=== PATIENT | female | born 1950 | race Caucasian/White ===

== ENCOUNTER 2019-03-09 12:28 | Day surgery (SDC) | payer OTHER ==
[~2019-03-09] VITALS: Ht 160 cm; Wt 64.0 kg
[~2019-03-09 12:28] MED LIST: ACYC800 PO; AMIO200 PO; AMOX250 PO; AMOX875 PO; Acetaminophen650 M1 PO; Amiodarone HCl200 MG PO; BAYER CHEWABLE81 MG PO; CALMAGZIN PO; CHOL10002; DILT120 PO; DILT120ERA PO; DILTIAZEM ER PO; DOCU100 PO; FURO20 PO; LEVO750 PO; METO25ER PO; METO50ER PO; Macrobid 100 M100 MG PO; OMEP10ER PO; OMEPRAZOLE MAGN20 MG PO; OXYACE5T PO; POTCHL10ER PO; Tambocor100 MG PO; XARELTO20 MG PO
[2019-04-08] MEDS ORDERED: DILT120 PO (13:08)
== END 2019-03-09 23:01 | disposition home or self-care (01) ==
LOC: MHTC 12:28 → EDSTATUS 13:00 → ECHO 14:00 → MHTC 23:01
DX: I35.0 Nonrheumatic aortic (valve) stenosis (principal); I48.4 Atypical atrial flutter; Z88.8 Allergy status to other drugs, medicaments and biological substances; Z79.899 Other long term (current) drug therapy; Z87.891 Personal history of nicotine dependence
CPT/HCPCS: 92960; 93005; 93010; 93017; 93350; 99152; J0461; J1250; J2250; J3010; J7030

== ENCOUNTER 2019-04-09 06:01 | Day surgery (SDC) | payer OTHER ==
[~2019-04-09] VITALS: Ht 160 cm; Wt 64.0 kg
--- NOTE | 2019-04-09 08:34 | NUR ---
TO RECOVERY ROOM VIA RECLINER. RIGHT HAND DISCOLORED. 1.5 CC AIR REMOVED FROM TR BAND. HAND PINK. CIRCULATION, MOTION, SENSATION NORMAL.
--- NOTE | 2019-04-09 10:15 | NUR ---
DISCHARGE INSTRUCTIONS GIVEN WITH PATIENT WRITTEN AND VERBAL UNDERSTANDING.
--- NOTE | 2019-04-09 10:35 | NUR ---
2 cc air removed from TR BAND. NO BLEEDING AT SITE. ADDITIONAL 5 CC AIR REMOVED FROM BAND OVER 10 MINUTES. SCANT BLEEDING AT SITE. NO AIR INSTILLED.
--- NOTE | 2019-04-09 11:40 | NUR ---
PT DRESSED FOR DISCHARGE. TR BAND REMOVED. CLOTH DOT AND IMMOBILIZER APPLIED.
--- NOTE | 2019-04-09 12:00 | NUR ---
IV REMOVED INTACT. 2X2 COBAN AND MANUAL PRESSURE APPLIED.
--- NOTE | 2019-04-09 12:10 | NUR ---
DISCHARGED HOME VIA WHEELCHAIR. SISTER DRIVING.
== END 2019-04-09 12:10 | disposition home or self-care (01) ==
LOC: MHTC 06:01 → ORSCMMR 06:02 → MHTC 06:47
DX: Z01.810 Encounter for preprocedural cardiovascular examination (principal); I25.10 Atherosclerotic heart disease of native coronary artery without angina pectoris; I35.0 Nonrheumatic aortic (valve) stenosis; I49.9 Cardiac arrhythmia, unspecified; I10 Essential (primary) hypertension; Z88.6 Allergy status to analgesic agent; Z79.899 Other long term (current) drug therapy; Z87.891 Personal history of nicotine dependence
CPT/HCPCS: 85347; 93454; 93571; 99152; 99153; C1769; C1887; C1894; J1644; J2250; J3010; J7030; Q9967

== ENCOUNTER → 2019-06-24 | Outpatient (CLI) | payer OTHER ==
[2019-06-25 14:23] LABS: Stool Occult Bld Immuno 1 Negative (NEGATIVE)
== END | disposition home or self-care (01) ==
LOC: LAB 12:00 → LAB SHORT 12:00
PROVIDERS: Nurse Practitioner Family
DX: Z12.11 Encounter for screening for malignant neoplasm of colon (principal)
CPT/HCPCS: G0328

== ENCOUNTER 2019-08-08 07:23 | Emergency (ER) | payer OTHER ==
[~2019-08-08] VITALS: Ht 160 cm; Wt 70.3 kg
[2019-08-08 07:40] LABS: Calcium, Ionized (POC) 1.18 mmol/L (1.10-1.46); Chloride (POC) 106 mmol/L (98-108); Creatinine (POC) 1.4 mg/dL (0.6-1.0); Glucose (ISTAT POC) 195 mg/dL (70-99); Hemoglobin (POC) 7.5 g/dL (12.0-16.0); Sodium (POC) 139 mmol/L (135-148); Total CO2 (POC) 20 mmol/L (21-32)
[2019-08-08 07:44] LABS: PCO2 Arterial 34.5 mmHg (35-45); PO2 Arterial 142 mmHg (80-100); pH Blood Arterial 7.33 (7.35-7.45)
[2019-08-08 08:21] LABS: BASOPHILS ABSOLUTE AUTO 0.07 K/mm3 (0.00-0.23); BASOPHILS PERCENT AUTO 0 % (0-2); EOSINOPHILS PERCENT AUTO 2 % (0-6); Hematocrit 25.1 % (33.0-51.0); Hemoglobin 7.7 g/dL (11.5-16.0); IMMATURE GRAN ABSOLUTE AUTO 0.09 K/mm3 (0.00-0.10); IMMATURE GRAN PERCENT AUTO 1 % (0-1); LYMPHOCYTES ABSOLUTE AUTO 2.36 K/mm3 (0.84-5.20); LYMPHOCYTES PERCENT AUTO 14 % (21-46); MONOCYTES ABSOLUTE AUTO 0.72 K/mm3 (0.16-1.47); MONOCYTES PERCENT AUTO 4 % (4-13); Mean Corpuscular HGB 28.5 pg (26.0-34.0); Mean Corpuscular HGB Conc 30.7 g/dL (31.5-36.5); Mean Corpuscular Volume 93 fL (80-100); Mean Platelet Volume 10.3 fL (9.1-12.4); NEUTROPHILS ABSOLUTE AUTO 13.28 K/mm3 (1.96-9.15); NEUTROPHILS PERCENT AUTO 79 % (41-73); Platelet Count 161 K/mm3 (150-400); RDW Coefficient Variation 14.8 % (11.7-14.2); White Blood Cell Count 16.82 K/mm3 (4.00-11.30)
[2019-08-08 08:36] LABS: Alanine Aminotransfer (ALT/SGP 15 U/L (12-78); Albumin, Blood 2.6 g/dL (3.4-5.0); Albumin/Globulin Ratio 0.8 (0.8-1.8); Alk Phos 85 U/L (50-136); Anion Gap 9 mmol/L (6-16); Aspartate Aminotrans (AST/SGOT 11 U/L (12-37); Bilirubin, Total 0.2 mg/dL (0.1-1.0); Blood Urea Nitrogen 22 mg/dL (8-24); Bun/Creatinine Ratio 17.1 (12.0-20.0); CO2, Blood 22 mmol/L (21-32); Calcium, Blood 8.2 mg/dL (8.5-10.1); Chloride, Blood 111 mmol/L (98-108); Creatinine, Blood 1.29 mg/dL (0.40-1.00); Globulin, Blood 3.2 g/dL (2.2-4.0); Glomerular Filtration Rate 43 (60-); Glucose, Blood 193 mg/dL (70-99); Potassium, Blood 4.1 mmol/L (3.5-5.5); Sodium, Blood 142 mmol/L (136-145); Total Protein, Blood 5.8 g/dL (6.4-8.2); Troponin I <0.015 ng/mL (0.000-0.040)
== END 2019-08-08 08:47 | disposition short-term general hospital (02) ==
LOC: ER 07:23
PROVIDERS: Emergency Medicine
DX: R00.1 Bradycardia, unspecified (principal); M79.81 Nontraumatic hematoma of soft tissue; N39.9 Disorder of urinary system, unspecified; I10 Essential (primary) hypertension; I48.91 Unspecified atrial fibrillation; K21.9 Gastro-esophageal reflux disease without esophagitis; Z88.6 Allergy status to analgesic agent; Z79.899 Other long term (current) drug therapy; Z87.891 Personal history of nicotine dependence; Z98.890 Other specified postprocedural states
CPT/HCPCS: 36415; 36430; 36600; 36680; 80047; 80053; 82803; 84484; 85014; 85025; 86850; 86900; 86901; 86920; 93005; 93010; 96374-59; 96375-59; 99291-25; J0461; J2250; J7120; P9016

== ENCOUNTER → 2019-10-11 | Outpatient (CLI) | payer OTHER | END | disposition home or self-care (01) | LOC: LAB 14:35 → LAB SHORT 10-12 14:35 | DX: K52.9 Noninfective gastroenteritis and colitis, unspecified (principal) | CPT/HCPCS: 87015; 87045; 87046; 87205; 87493; 87899 ==

== ENCOUNTER → 2021-01-31 | Outpatient (CLI) | payer OTHER ==
[2021-02-01 07:38] LABS: Stool Occult Bld Immuno 1 Negative (NEGATIVE)
== END | disposition home or self-care (01) ==
LOC: PLD 11:00 → LAB SHORT 11:00
PROVIDERS: Family Medicine
DX: Z12.11 Encounter for screening for malignant neoplasm of colon (principal)
CPT/HCPCS: G0328

== ENCOUNTER 2021-02-19 13:36 | Emergency (ER) | payer OTHER ==
[~2021-02-19] VITALS: Ht 160 cm; Wt 65.8 kg
== END 2021-02-19 16:10 | disposition home or self-care (01) ==
LOC: ER 13:36
DX: H72.91 Unspecified perforation of tympanic membrane, right ear (principal); K21.9 Gastro-esophageal reflux disease without esophagitis; Z88.6 Allergy status to analgesic agent; Z79.01 Long term (current) use of anticoagulants; Z79.899 Other long term (current) drug therapy
CPT/HCPCS: 99282

== ENCOUNTER 2022-03-20 15:39 | Emergency (ER) | payer OTHER ==
[~2022-03-20] VITALS: Ht 160 cm; Wt 63.5 kg
[2022-03-20 17:02] LABS: Albumin, Blood 3.8 g/dL (3.4-5.0); Albumin/Globulin Ratio 0.8 (0.8-1.8); Bilirubin, Total 0.5 mg/dL (0.1-1.0); Bun/Creatinine Ratio 16.5 (12.0-20.0); Calcium, Blood 10.2 mg/dL (8.5-10.1); Creatinine, Blood 1.21 mg/dL (0.40-1.00); Globulin, Blood 4.7 g/dL (2.2-4.0); Potassium, Blood 4.7 mmol/L (3.5-5.5); Total Protein, Blood 8.5 g/dL (6.4-8.2)
[2022-03-20 17:14] LABS: BASOPHILS ABSOLUTE AUTO 0.05 K/mm3 (0.00-0.23); BASOPHILS PERCENT AUTO 1 % (0-2); EOSINOPHILS ABSOLUTE AUTO 0.12 K/mm3 (0.00-0.68); EOSINOPHILS PERCENT AUTO 2 % (0-6); Hematocrit 52.2 % (33.0-51.0); Hemoglobin 16.7 g/dL (11.5-16.0); IMMATURE GRAN ABSOLUTE AUTO 0.02 K/mm3 (0.00-0.10); IMMATURE GRAN PERCENT AUTO 0 % (0-1); LYMPHOCYTES ABSOLUTE AUTO 3.01 K/mm3 (0.84-5.20); LYMPHOCYTES PERCENT AUTO 37 % (21-46); MONOCYTES ABSOLUTE AUTO 0.47 K/mm3 (0.16-1.47); MONOCYTES PERCENT AUTO 6 % (4-13); Mean Corpuscular HGB 27.6 pg (26.0-34.0); Mean Corpuscular Volume 86 fL (80-100); Mean Platelet Volume 10.7 fL (9.1-12.4); NEUTROPHILS ABSOLUTE AUTO 4.44 K/mm3 (1.96-9.15); NEUTROPHILS PERCENT AUTO 55 % (41-73); Platelet Count 164 K/mm3 (150-400); RDW Coefficient Variation 13.4 % (11.7-14.2); RDW Standard Deviation 42.4 fL (35.1-46.3); Red Blood Cell Count 6.05 M/mm3 (3.80-5.20); White Blood Cell Count 8.11 K/mm3 (4.00-11.30)
== END 2022-03-20 19:47 | disposition home or self-care (01) ==
LOC: ER 15:39
PROVIDERS: Emergency Medicine
DX: I48.0 Paroxysmal atrial fibrillation (principal); Z79.899 Other long term (current) drug therapy; Z87.891 Personal history of nicotine dependence
CPT/HCPCS: 36415; 71046; 80053; 84484; 85025; 92960; 93005; 93010; 99285-25; J2704; J7030

== ENCOUNTER 2022-03-25 15:04 | Emergency (ER) | payer OTHER ==
[~2022-03-25] VITALS: Ht 160 cm; Wt 63.5 kg
[2022-03-25 15:46] LABS: BASOPHILS ABSOLUTE AUTO 0.08 K/mm3 (0.00-0.23); BASOPHILS PERCENT AUTO 1 % (0-2); EOSINOPHILS ABSOLUTE AUTO 0.14 K/mm3 (0.00-0.68); EOSINOPHILS PERCENT AUTO 2 % (0-6); Hematocrit 45.9 % (33.0-51.0); Hemoglobin 14.4 g/dL (11.5-16.0); IMMATURE GRAN ABSOLUTE AUTO 0.04 K/mm3 (0.00-0.10); IMMATURE GRAN PERCENT AUTO 0 % (0-1); LYMPHOCYTES ABSOLUTE AUTO 3.13 K/mm3 (0.84-5.20); LYMPHOCYTES PERCENT AUTO 33 % (21-46); MONOCYTES ABSOLUTE AUTO 0.48 K/mm3 (0.16-1.47); MONOCYTES PERCENT AUTO 5 % (4-13); Mean Corpuscular HGB 27.9 pg (26.0-34.0); Mean Corpuscular HGB Conc 31.4 g/dL (31.5-36.5); Mean Corpuscular Volume 89 fL (80-100); Mean Platelet Volume 10.5 fL (9.1-12.4); NEUTROPHILS ABSOLUTE AUTO 5.56 K/mm3 (1.96-9.15); NEUTROPHILS PERCENT AUTO 59 % (41-73); Platelet Count 151 K/mm3 (150-400); RDW Coefficient Variation 13.5 % (11.7-14.2); RDW Standard Deviation 43.9 fL (35.1-46.3); Red Blood Cell Count 5.16 M/mm3 (3.80-5.20); White Blood Cell Count 9.43 K/mm3 (4.00-11.30)
[2022-03-25 16:04] LABS: Albumin, Blood 3.3 g/dL (3.4-5.0); Albumin/Globulin Ratio 0.9 (0.8-1.8); Bilirubin, Total 0.3 mg/dL (0.1-1.0); Bun/Creatinine Ratio 13.7 (12.0-20.0); Calcium, Blood 9.1 mg/dL (8.5-10.1); Creatinine, Blood 1.53 mg/dL (0.40-1.00); Globulin, Blood 3.8 g/dL (2.2-4.0); Potassium, Blood 4.4 mmol/L (3.5-5.5); Total Protein, Blood 7.1 g/dL (6.4-8.2)
[2022-03-25 16:49] LABS: Magnesium, Blood 2.1 mg/dL (1.6-2.4)
[2022-03-25 16:51] LABS: Thyroid Stimulating Hormone 1.9 uIU/mL (0.360-4.800)
== END 2022-03-25 19:32 | disposition home or self-care (01) ==
LOC: ER 15:04
PROVIDERS: Emergency Medicine; Student in an Organized Health Care Education/Training Program
DX: I48.91 Unspecified atrial fibrillation (principal); K21.9 Gastro-esophageal reflux disease without esophagitis; Z88.6 Allergy status to analgesic agent; Z88.8 Allergy status to other drugs, medicaments and biological substances; Z79.899 Other long term (current) drug therapy; Z79.01 Long term (current) use of anticoagulants; Z95.2 Presence of prosthetic heart valve
CPT/HCPCS: 36415; 71046; 80053; 83735; 83880; 84443; 84484; 85025; 93005; 93010; J7030

== ENCOUNTER 2022-05-22 19:30 | Emergency (ER) | payer OTHER ==
[~2022-05-22] VITALS: Ht 160 cm; Wt 65.3 kg
[~2022-05-22 19:30] MED LIST changes: +ATEN25 PO; +DILT30 PO; +ESOMEPRAZOLE MA20 MG PO; +Flecainide Acet50 MG PO; +METOPROLOL SUCC25 MG PO
[2022-05-22] MEDS ORDERED: DILT120 (19:53)
[2022-05-22 20:30] LABS: BASOPHILS ABSOLUTE AUTO 0.05 K/mm3 (0.00-0.23); BASOPHILS PERCENT AUTO 1 % (0-2); EOSINOPHILS ABSOLUTE AUTO 0.11 K/mm3 (0.00-0.68); EOSINOPHILS PERCENT AUTO 2 % (0-6); Hematocrit 40.8 % (33.0-51.0); Hemoglobin 13.1 g/dL (11.5-16.0); IMMATURE GRAN ABSOLUTE AUTO 0.02 K/mm3 (0.00-0.10); IMMATURE GRAN PERCENT AUTO 0 % (0-1); LYMPHOCYTES ABSOLUTE AUTO 1.99 K/mm3 (0.84-5.20); LYMPHOCYTES PERCENT AUTO 31 % (21-46); MONOCYTES ABSOLUTE AUTO 0.35 K/mm3 (0.16-1.47); MONOCYTES PERCENT AUTO 5 % (4-13); Mean Corpuscular HGB 28.1 pg (26.0-34.0); Mean Corpuscular HGB Conc 32.1 g/dL (31.5-36.5); Mean Corpuscular Volume 88 fL (80-100); Mean Platelet Volume 10.5 fL (9.1-12.4); NEUTROPHILS ABSOLUTE AUTO 3.95 K/mm3 (1.96-9.15); NEUTROPHILS PERCENT AUTO 61 % (41-73); Platelet Count 139 K/mm3 (150-400); RDW Coefficient Variation 13.9 % (11.7-14.2); RDW Standard Deviation 44.4 fL (35.1-46.3); Red Blood Cell Count 4.66 M/mm3 (3.80-5.20); White Blood Cell Count 6.47 K/mm3 (4.00-11.30)
[2022-05-22 20:50] LABS: Albumin, Blood 3.2 g/dL (3.4-5.0); Albumin/Globulin Ratio 0.8 (0.8-1.8); Bilirubin, Total 0.2 mg/dL (0.1-1.0); Bun/Creatinine Ratio 14.1 (12.0-20.0); Creatinine, Blood 1.63 mg/dL (0.40-1.00); Globulin, Blood 3.8 g/dL (2.2-4.0); Magnesium, Blood 2.3 mg/dL (1.6-2.4); Potassium, Blood 3.8 mmol/L (3.5-5.5)
== END 2022-05-22 23:38 | disposition home or self-care (01) ==
LOC: ER 19:30
PROVIDERS: Physician Assistant
DX: R07.9 Chest pain, unspecified (principal); I48.91 Unspecified atrial fibrillation; Z79.899 Other long term (current) drug therapy; Z79.01 Long term (current) use of anticoagulants; Z87.891 Personal history of nicotine dependence
CPT/HCPCS: 36415; 71045; 80053; 83735; 84484; 85025; 93005; 93010; 96374; 99285-25; A9270

== ENCOUNTER → 2022-06-27 | Outpatient (CLI) | payer OTHER ==
[~2022-06-27] MED LIST changes: +DILT120
== END ==
LOC: LAB 12:30 → LAB SHORT 12:30
DX: K52.9 Noninfective gastroenteritis and colitis, unspecified (principal)
CPT/HCPCS: 82653; 83993

== ENCOUNTER → 2022-10-30 | Outpatient (CLI) | payer OTHER ==
[2022-10-31 07:17] LABS: Stool Occult Bld Immuno 1 Negative (NEGATIVE)
== END | disposition home or self-care (01) ==
LOC: LAB SHORT 11:00
PROVIDERS: Family Medicine
DX: E03.9 Hypothyroidism, unspecified (principal); D64.9 Anemia, unspecified
CPT/HCPCS: G0328

== ENCOUNTER 2022-11-03 10:59 | Inpatient (IN) | payer OTHER ==
[~2022-11-03] VITALS: Ht 160 cm; Wt 68.3 kg
[~2022-11-03 10:59] MED LIST changes: -DILT120
[2022-11-03 11:30] LABS: BASOPHILS ABSOLUTE AUTO 0.05 K/mm3 (0.00-0.23); BASOPHILS PERCENT AUTO 0 % (0-2); EOSINOPHILS ABSOLUTE AUTO 0.03 K/mm3 (0.00-0.68); EOSINOPHILS PERCENT AUTO 0 % (0-6); Hematocrit 38.8 % (33.0-51.0); Hemoglobin 12.4 g/dL (11.5-16.0); IMMATURE GRAN ABSOLUTE AUTO 0.11 K/mm3 (0.00-0.10); IMMATURE GRAN PERCENT AUTO 1 % (0-1); LYMPHOCYTES ABSOLUTE AUTO 2.89 K/mm3 (0.84-5.20); LYMPHOCYTES PERCENT AUTO 26 % (21-46); MONOCYTES ABSOLUTE AUTO 0.82 K/mm3 (0.16-1.47); MONOCYTES PERCENT AUTO 7 % (4-13); Mean Corpuscular HGB 27.4 pg (26.0-34.0); Mean Corpuscular Volume 86 fL (80-100); Mean Platelet Volume 10.2 fL (9.1-12.4); NEUTROPHILS ABSOLUTE AUTO 7.37 K/mm3 (1.96-9.15); NEUTROPHILS PERCENT AUTO 65 % (41-73); Platelet Count 181 K/mm3 (150-400); RDW Coefficient Variation 14.9 % (11.7-14.2); RDW Standard Deviation 46.4 fL (35.1-46.3); Red Blood Cell Count 4.53 M/mm3 (3.80-5.20); White Blood Cell Count 11.27 K/mm3 (4.00-11.30)
[2022-11-03 11:47] LABS: Albumin/Globulin Ratio 0.8 (0.8-1.8); Bilirubin, Total 0.4 mg/dL (0.1-1.0); Bun/Creatinine Ratio 28.3 (12.0-20.0); Calcium, Blood 8.5 mg/dL (8.5-10.1); Creatinine, Blood 1.06 mg/dL (0.40-1.00); Globulin, Blood 3.9 g/dL (2.2-4.0); Potassium, Blood 3.9 mmol/L (3.5-5.5); Total Protein, Blood 6.9 g/dL (6.4-8.2)
[2022-11-03] MEDS ORDERED: CREON DR 36,001 EACH PO (14:31)
--- NOTE | 2022-11-03 18:25 | NUR ---
PT ARRIVED IN PCU VIA GURNEY FROM [facility] REPORT RECEIVED FROM JOSE J RN, PT IS HERE FOR AFIB RVR, ONC ARDIZEM GTT AT 5MG/HR UPON ARRIVAL. PT WAS ABLE TO STAND BY ASSIST TO TRANSFER TO PCU BED, PT ALERT AND ORIENTED X4, VITALS HRR AFLUTTER 90-110'S, SBP 130'S, SATS ABOVE 90% ON RA, AFEBRILE. PT DENIES ANY CHEST PAIN/PRESSURE. DENIES ANY KIND OF PAIN AND DISCOMFORT. POWERGLIDE PLACED ON ZEYNEP, 22G IV ON RIGHT THUMB PULLED DUE TO DISCOMFORT. NO OTHER ISSUES ENCOUNTERED TO REPORT TO ONCOMING SHIFT
--- NOTE | 2022-11-03 21:28 | NUR ---
ASSUMPTION OF CARE 1899 THIS RN ASSUMED CARE OF PT AT 1900, REPORT FROM MELINDA FULLER. PT A&O X4; PLEASANT UPON INTERACTIONS. VSS. PT DENIES CP OR PRESSURE, DENIES SOB. PT DENIES DIZZINESS OR LIGHTHEADNESS. PT EXPRESSES SOME FRUSTRATION "BECAUSE HER HEART RATE IS NOT COMING DOWN AND STILL IN 90'S - 100'S". THIS RN PROVIDED EDUCATION ABOUT CONDITION AND MEDICATIONS WELL REMINDED HER OF THE PROGRESS THAT HAS ALEADY BEEN MADE SINCE ARRIVING. PT AGREED. PT UP TO USE RESTROOM W/ASSISTANCE ONLY FOR CORDS AND LINES. HR INCREASED 130 - 140 W/ACTIVITY. PT REPOSITIONED SELF BACK TO BED. REPORTS MILD HEADACHE, 3/10; TYLENOL ADMINISTERED PER EMAR. PT DENIES OTHER NEEDS OR CONCERNS AT THIS TIME. CALL LIGHT IN REACH
--- NOTE | 2022-11-03 23:11 | NUR ---
UPDATE PT HR SUSTAINING HIGH 90'S - 120'S AT REST. CARDIZEM GTT TITRATED TO 10 MLS/HR.
[2022-11-04 04:48] LABS: Hematocrit 36.7 % (33.0-51.0); Hemoglobin 11.7 g/dL (11.5-16.0); Mean Corpuscular HGB 27.1 pg (26.0-34.0); Mean Corpuscular HGB Conc 31.9 g/dL (31.5-36.5); Mean Corpuscular Volume 85 fL (80-100); Mean Platelet Volume 9.7 fL (9.1-12.4); Platelet Count 128 K/mm3 (150-400); RDW Coefficient Variation 14.6 % (11.7-14.2); RDW Standard Deviation 45.6 fL (35.1-46.3); Red Blood Cell Count 4.32 M/mm3 (3.80-5.20); White Blood Cell Count 7.89 K/mm3 (4.00-11.30)
[2022-11-04 05:03] LABS: Calcium, Blood 8.4 mg/dL (8.5-10.1); Creatinine, Blood 1.15 mg/dL (0.40-1.00)
--- NOTE | 2022-11-04 06:47 | NUR ---
SHIFT SUMMARY PT REMAINS A&0 X4. NO ACUTE A CHANGES OVERNIGHT. VSS. HR/RHYTHM REMAINS AFLUTTER W/RATE OF 90 - 100'S. CARDIZEM GTT CURRENTLY AT 5MLS/HR. PT RESTED WELL THROUGHOUT NIGHT. PT UP TO USE RESTROOM INDEPENDENTLY, ONLY NEEDING ASSISTANCE FOR CORD AND LINE MANAGEMENT. CALL LIGHT IN REACH. WILL UPDATE ONCOMING RN
--- NOTE | 2022-11-04 07:35 | NUR ---
AM NOTE PT ALERT, ORIENTED x4; CALM AND COOPERATIVE WITH CARE. PT RESING IN BED, REPOSITIONS SELF IN BED, SBA IN ROOM WITH IV POLE. PT DENIES PAIN, CHEST PAIN/PRESSURE, SOB, NAUSEA, DIZZINESS/LIGHTHEADEDNESS AND NUMB/TINGLING. TELE AFLUTTER 110-120'S, BP ELEVATED, WILL CONTINUE TO MONITOR. SPO2 >94% ON RA, BREATHING EVEN AND UNLABORED. BT +x4 QUAD, ABD SOFT NONTENDER. PT UP TO BATHROOM TO VOID. CARDIZEM GTT INFUSING, TITRATED TO 10 MG/HR. OTHER VSS. NO OTHER ACUTE CHANGES NOTED. WILL CONTINUE TO MONITOR.
--- NOTE | 2022-11-04 17:58 | NUR ---
Shift Summary Cardizem stopped at 0956; pt dropped down to 48; over the next hour pt hr 42-70's, sustained 3.18 second pause, Dr Vallejo notified, held amiodarone due to hr/pause, approx 1400 pt increased to 120-140; notified Dr Vallejo, new order to continue to monitor and start amiodarone if heart rate is greater than 120 for 1 hr, pt hr remained 140's, amiodarone bolus given, hr down to 115; pt started on amiodarone 1mg for 6 hours, then 0.5mg for 18 hours. Pt reporting anxiety, notified Dr Vallejo, new order entered. Pt and family expressed the desire for a cardiology consult, notified Dr Vallejo, educated pt, will revisit tomorrow. Other vss. No other acute changes noted. Will continue to monitor until report given to oncoming rn.
--- NOTE | 2022-11-05 06:06 | NUR ---
SHIFT SUMMARY PT REMAINS A&O X4. PT HAD UNEVENTFUL NIGHT. VSS; HR/RHYTHM; ALFUTTER W/RATE 100 - 1 TEENS ON AMIO GTT. HR STILL INCREASING TO 120 - 140'S W/ACTIVITY. PT CONTINUES TO DENY CP OR PRESSURE, DENIES DIZZINESS OR LIGHTHEADNESS. PT USING BATHROOM AND VOIDING WELL. PT HAD 2 BM'S THIS SHIFT; PT REPORTS STOOL IS UNFORMED/SOFT BUT REGULAR IN COLOR AND AMOUNT. NO OTHER CHANGES THIS SHIFT. PT SLETP WELL THROUGHOUT SHIFT. CALL LIGHT IN REACH. WILL UPDATE ONCOMING RN
--- NOTE | 2022-11-05 08:40 | NUR ---
AM NOTE Pt alert, oriented X4, anxious at times. Pt up with sba for iv, otherwise ind. Pt denies pain, chest pain/pressure, sob, nauses, dizziness and numb/tingling. Tele alfutter 130-140's bp stable, amiodarone gtt infusing per orders. Spo2 >90% on ra, breathing even and unlabored. Abd soft, nontender, reporting low appetite. Cardiology consulted this am. Other vss. No other acute changes noted. Will continue to monitor.
--- NOTE | 2022-11-05 20:36 | NUR ---
ASSUMPTION OF CARE THIS RN ASSUMED CARE OF PATIENT AT 1900. REPORT TAKEN FROM ARMAND LAWRENCE. PATIENT ALERT AND ORIENTED FULLY. INDEPENDENT WITH ADL'S AND CALLING APPROPRIATELY. AFLUTTER WITH HR 70-90'S ON THE MONITOR, OCCASIONAL PAUSES. SBP 100-110'S. DENIES CHEST PAIN/PRESSURE, SOB, OR PALPITATIONS. ON RA WITH SPO2 >92%. AFEBRILE. BED IN LOWEST POSITION AND CALL LIGHT WITHIN REACH.
--- NOTE | 2022-11-06 04:25 | NUR ---
SHIFT SUMMARY PATIENT ALERT AND ORIENTED FULLY. AFLUTTER ON MONITOR WITH HR 70-80'S THROUGHOUT THE SHIFT WHILE RESTING. PATIENT WITH A 4.33 SECOND PAUSE AT 0419 THIS AM. BP STABLE WITH SBP 100-110'S. AFEBRILE. DENIES CHEST PAIN/PRESSURE, SOB, DIZZINESS, OR PALPITATIONS. ON RA WITH SPO2 >92%. CONTINUES TO BE INDEPENDENT WITH ADL'S AND CALLS APPROPRIATELY. BED IN LOWEST POSITION AND CALL LIGHT WITHIN REACH. THIS RN WILL CONTINUE TO MONITOR UNTIL SHIFT CHANGE AT 0700.
--- NOTE | 2022-11-06 08:42 | NUR ---
AM NOTE Pt alert, oriented x4; anxious this am regarding heart rate. Pt ind in room and repositions self. Pt denies pain, chest pain/pressure, sob, nauses, and dizziness. Tele alfutter 130-140; noted pauses last night, notified Dr Fish, plans to coninue to medication administration this am. Spo2 >90% on ra, breathing even and unlabored. Abd soft, nontender. Pt up in chair for breakfast. Other vss. No other acute changes noted. Will continue to monitor.
--- NOTE | 2022-11-06 18:44 | NUR ---
Shift Summary Pt continues to be in aflutter, 90-140's, bp stable. Plans for NPO at midnight for possible cardioversion 11/07. Other vss. No other acute changes noted. Will continue to monitor.
[2022-11-07 04:11] LABS: Hematocrit 38.3 % (33.0-51.0); Hemoglobin 11.9 g/dL (11.5-16.0); Mean Corpuscular HGB 26.4 pg (26.0-34.0); Mean Corpuscular HGB Conc 31.1 g/dL (31.5-36.5); Mean Corpuscular Volume 85 fL (80-100); Mean Platelet Volume 10.3 fL (9.1-12.4); Platelet Count 132 K/mm3 (150-400); RDW Coefficient Variation 14.7 % (11.7-14.2); RDW Standard Deviation 45.8 fL (35.1-46.3); Red Blood Cell Count 4.51 M/mm3 (3.80-5.20)
[2022-11-07 04:33] LABS: Albumin, Blood 2.8 g/dL (3.4-5.0); Anion Gap 2 mmol/L (6-16); Blood Urea Nitrogen 28 mg/dL (8-24); Bun/Creatinine Ratio 20.9 (12.0-20.0); CO2, Blood 26 mmol/L (21-32); Calcium, Blood 8.5 mg/dL (8.5-10.1); Chloride, Blood 110 mmol/L (98-108); Creatinine, Blood 1.34 mg/dL (0.40-1.00); Glomerular Filtration Rate 42 (60-); Glucose, Blood 108 mg/dL (70-99); Magnesium, Blood 2.3 mg/dL (1.6-2.4); Phosphorus, Blood 3.4 mg/dL (2.5-4.9); Potassium, Blood 4.3 mmol/L (3.5-5.5); Sodium, Blood 138 mmol/L (136-145)
--- NOTE | 2022-11-07 04:34 | NUR ---
SHIFT SUMMARY PATIENT WITH 2.21 SECOND PAUSE DURING THIS SHIFT. OCCASIONAL TRIGEMINY AND PVC'S NOTED. AFLUTTER WITH HR MAINTAINING 70-90'S DURING THE MAJORITY OF THIS SHIFT. SBP 100-110'S. AFEBRILE. PATIENT HAS BEEN NPO SINCE MIDNIGHT. VERBALIZED UNDERSTANDING PLAN OF CARE. A&O X4. INDEPENDENT WITH ADL'S. CALLS APPROPRIATELY. BED IN LOWEST POSITION AND CALL LIGHT WITHIN REACH. THIS RN WILL CONTINUE TO MONITOR UNTIL SHIFT CHANGE AT 0700.
--- NOTE | 2022-11-07 08:45 | NUR ---
ASSUMED CARE PT ALERT AND ORIENTED. ANSWERING QUESTIONS APPRIORIATELY. BP STABLE. HR AFLUTTER. RATE 90'S WHILE PT WAS RESTING AND AFTER THIS RN ENTERED ROOM, HR INCREASED TO 120'S. PT DENIES ANY PAIN OR PALPITATIONS. NO PAUSES NOTED ON THE MONITOR. PT MEDICATED PER EMAR. PT ABLE TO AMBULATE INDEPENDENTLY IN HER ROOM. NPO FOR POSSIBLE PROCEDURE THIS SHIFT. WILL CONTINUE TO MONITOR CLOSELY
--- NOTE | 2022-11-07 14:30 | NUR ---
UPDATE PT TAKEN TO SAMPLER AND TEST PREPARER FOR PROCEDURE. WILL AWAIT RETURN
--- NOTE | 2022-11-07 17:18 | NUR ---
UPDATE PT RETURNED FROM THE [place] MECHANIC. PT AWAKE AND ALERT. BP STABLE. HR IS AFLUTTER 90-110. WOUND TO LEFT CHEST WALL IS C/D/I. PT STATES MILD TENDERNESS AND ICE PACK APPLIED. PT EDUCATED ON LEFT ARM RESTRICTIONS AND VERBALIZED UNDERSTANDING. WILL CONTINUE TO MONITOR AND REPORT TO ONCOMING RN
--- NOTE | 2022-11-07 20:20 | NUR ---
ASSUMPTION OF CARE THIS RN ASSUMED CARE OF PATIENT AT 1900. REPORT TAKEN FROM BECCA LAWRENCE. PATIENT ALERT AND ORIENTED FULLY. THREE AFFILIATED. ABLE TO MAKE NEEDS KNOWN AND INDEPENDENT IN ROOM. LEFT CHEST WALL PACEMAKER SITE WTIH DRESSING C/D/I. NO HEMATOMAS, SWELLING, OR BLEEDING NOTED. TENDER TO TOUCH. NO SUBCUTANEOUS EMPHYSEMA NOTED. PATIENT VERBALIZING RESTRICTIONS FOR USE OF LEFT ARM. PATIENT GIVEN ICE PACK AND MEDICATED FOR PAIN PER EMAR. AFLUTTER NOTED ON MONITOR WITH HR 70-120'S WTIH OCCASIONAL VENT PACER SPIKES NOTED. BP STABLE WITH SBP 100-110'S. AFEBRILE. ON RA WITH SPO2 > 92%. BED IN LOWEST POSITION AND CALL LIGHT WITHIN REACH.
--- NOTE | 2022-11-08 04:35 | NUR ---
SHIFT SUMMARY NO ACUTE CHANGES OVERNIGHT. PACEMAKER SITE REMAINS UNCHANGED FROM PREVIOUS NOTE. DRESSING C/D/I. ONLY MILD TENDERNESS WITH PALPATION. AFLUTTER WITH HR MAINTAINING 70-90'S MOST OF THIS SHIFT WITH OCCASIONAL BRIEF INCREASES TO 110-120'S, OCCASIONAL VENTRICULAR PACED BEATS NOTED. BP STABLE. SPO2 >92% ON RA. AFEBRILE. PATIENT DENIES CHEST PAIN/PRESSURE, SOB, OR DIZZINESS. VERBALIZED UNDERSTANDING RESTRICTIONS OF ARM MOVEMENTS. REINFORCED TEACHING OF RESTRICTIONS. PATIENT INDEPENDENT WITH ADL'S. BED IN LOWEST POSITION AND CALL LIGHT WITHIN REACH. THIS RN WILL CONTINUE TO MONITOR UNTIL SHIFT CHANGE AT 0700.
[2022-11-08] MEDS ORDERED: DIGOX125 MC1 PO (11:32)
== END 2022-11-08 15:00 | disposition home or self-care (01) | DRG 243 ==
LOC: ER 10:59 → PCU 13:42
PROVIDERS: Student in an Organized Health Care Education/Training Program; ADMIT Internal Medicine
PROC: 0JH604Z Insertion of Pacemaker, Single Chamber into Chest Subcutaneous Tissue and Fascia, Open Approach (ICD-10-PCS; principal; 2022-11-07)
PROC: 02HK3JZ Insertion of Pacemaker Lead into Right Ventricle, Percutaneous Approach (ICD-10-PCS; 2022-11-07)
DX: I49.5 Sick sinus syndrome (principal); I48.92 Unspecified atrial flutter; K21.9 Gastro-esophageal reflux disease without esophagitis; Z95.2 Presence of prosthetic heart valve; Z79.01 Long term (current) use of anticoagulants; Z87.891 Personal history of nicotine dependence; N18.30 Chronic kidney disease, stage 3 unspecified; I48.91 Unspecified atrial fibrillation; I44.7 Left bundle-branch block, unspecified
CPT/HCPCS: 33207; 36415; 71046; 80048; 80053; 80069; 83735; 84484; 85025; 85027; 93005; 93010; 93308; 93321; 96361; 96365; 96366; 96376; 99152; 99153; 99285-25; A9270; C1786; C1894; C1898; J0282; J0690; J1644; J2250; J3010; J7030; J7040; J7060; Q9967

== ENCOUNTER 2022-12-10 10:34 | Observation (INO) | payer OTHER ==
[~2022-12-10] VITALS: Ht 160 cm; Wt 74.6 kg
[~2022-12-10 10:34] MED LIST changes: +CREON DR 36,001 EACH PO; +DIGOX125 MC1 PO
[2022-12-10 12:13] LABS: BASOPHILS ABSOLUTE AUTO 0.07 K/mm3 (0.00-0.23); BASOPHILS PERCENT AUTO 1 % (0-2); EOSINOPHILS ABSOLUTE AUTO 0.08 K/mm3 (0.00-0.68); EOSINOPHILS PERCENT AUTO 1 % (0-6); Hematocrit 36.4 % (33.0-51.0); Hemoglobin 11.1 g/dL (11.5-16.0); IMMATURE GRAN ABSOLUTE AUTO 0.08 K/mm3 (0.00-0.10); IMMATURE GRAN PERCENT AUTO 1 % (0-1); LYMPHOCYTES PERCENT AUTO 16 % (21-46); MONOCYTES ABSOLUTE AUTO 0.47 K/mm3 (0.16-1.47); MONOCYTES PERCENT AUTO 5 % (4-13); Mean Corpuscular HGB 26.4 pg (26.0-34.0); Mean Corpuscular HGB Conc 30.5 g/dL (31.5-36.5); Mean Corpuscular Volume 87 fL (80-100); Mean Platelet Volume 10.1 fL (9.1-12.4); NEUTROPHILS ABSOLUTE AUTO 7.19 K/mm3 (1.96-9.15); NEUTROPHILS PERCENT AUTO 77 % (41-73); Platelet Count 138 K/mm3 (150-400); RDW Coefficient Variation 14.7 % (11.7-14.2); RDW Standard Deviation 47.1 fL (35.1-46.3); White Blood Cell Count 9.39 K/mm3 (4.00-11.30)
[2022-12-10 12:38] LABS: Albumin/Globulin Ratio 0.9 (0.8-1.8); Bilirubin, Total 0.4 mg/dL (0.1-1.0); Bun/Creatinine Ratio 15.4 (12.0-20.0); Calcium, Blood 8.6 mg/dL (8.5-10.1); Creatinine, Blood 1.23 mg/dL (0.40-1.00); Globulin, Blood 3.5 g/dL (2.2-4.0); Total Protein, Blood 6.5 g/dL (6.4-8.2)
[2022-12-10 20:03] VITALS: BP 138/77
[2022-12-11 00:32] VITALS: BP 104/67
[2022-12-11 03:55] VITALS: BP 134/77
[2022-12-11 03:57] LABS: BASOPHILS ABSOLUTE AUTO 0.02 K/mm3 (0.00-0.23); BASOPHILS PERCENT AUTO 0 % (0-2); EOSINOPHILS PERCENT AUTO 0 % (0-6); Hematocrit 34.1 % (33.0-51.0); Hemoglobin 10.6 g/dL (11.5-16.0); IMMATURE GRAN ABSOLUTE AUTO 0.09 K/mm3 (0.00-0.10); IMMATURE GRAN PERCENT AUTO 1 % (0-1); LYMPHOCYTES ABSOLUTE AUTO 0.83 K/mm3 (0.84-5.20); LYMPHOCYTES PERCENT AUTO 10 % (21-46); MONOCYTES ABSOLUTE AUTO 0.27 K/mm3 (0.16-1.47); MONOCYTES PERCENT AUTO 3 % (4-13); Mean Corpuscular HGB 26.3 pg (26.0-34.0); Mean Corpuscular HGB Conc 31.1 g/dL (31.5-36.5); Mean Corpuscular Volume 85 fL (80-100); Mean Platelet Volume 10.5 fL (9.1-12.4); NEUTROPHILS ABSOLUTE AUTO 6.86 K/mm3 (1.96-9.15); NEUTROPHILS PERCENT AUTO 85 % (41-73); Platelet Count 131 K/mm3 (150-400); RDW Coefficient Variation 14.6 % (11.7-14.2); RDW Standard Deviation 45.1 fL (35.1-46.3); Red Blood Cell Count 4.03 M/mm3 (3.80-5.20); White Blood Cell Count 8.07 K/mm3 (4.00-11.30)
[2022-12-11 04:19] LABS: Albumin, Blood 2.7 g/dL (3.4-5.0); Albumin/Globulin Ratio 0.8 (0.8-1.8); Bilirubin, Total 0.4 mg/dL (0.1-1.0); Bun/Creatinine Ratio 16.5 (12.0-20.0); Calcium, Blood 8.5 mg/dL (8.5-10.1); Creatinine, Blood 1.09 mg/dL (0.40-1.00); Globulin, Blood 3.6 g/dL (2.2-4.0); Magnesium, Blood 2.3 mg/dL (1.6-2.4); Potassium, Blood 4.4 mmol/L (3.5-5.5); Total Protein, Blood 6.3 g/dL (6.4-8.2)
--- NOTE | 2022-12-11 06:51 | NUR ---
SHIFT SUMMARY A/Ox4 AND COOPERATIVE WITH CARE PROVIDED BY MEMBERS OF STAFF. ANSWERS QUESTIONS APPROPRIATELY AND ABLE TO MAKE HER NEEDS KNOWN. NO ACUTE CHANGES OVERNIGHT FOR PT SLEPT OFF AND ON T/O THE SHIFT. MAINTAINED SPO2 >92% ON 2-3L VIA NC. SOB STILL NOTED WITH ABULATION, BUT PT RECOVERS QUICKLY. CARDIAC [place], PT HAS REMAINED V-PACED WITH NO REPORTS OF NO CP OR PRESSURE T/O THE NIGHT. SBP REMAINED STABLE. ABLE TO ABULATE TO THE BATHROOM WITH MINIMAL ASSISTANCE. NO NEW ORDERS AT THIS TIME, WILL REPORT TO ONCOMING RN. VALERIY LEWIS T/O THE SHIFT
[2022-12-11 07:42] VITALS: BP 134/95
[2022-12-11 11:32] VITALS: BP 113/77
[2022-12-11 14:06] VITALS: BP 129/74
[2022-12-11] MEDS ORDERED: TORSE20 PO (14:23)
[2022-12-11] MEDS ORDERED: PROPAFENONE HC225 MG PO (14:23)
[2022-12-11] MEDS ORDERED: POTA10T PO (14:23)
--- NOTE | 2022-12-11 14:37 | NUR ---
DAY SHIFT SUMMARY REPORT RECIEVED IN THE BEGINNING OF SHIFT. GREETED ANDF ASSESSED PATIENT. [id number] MEDICATION PASS. GAVE EDUCATION ON THE FUNCTION OF FUROSEMIDE.
[2022-12-11] MEDS ORDERED: FURO20 PO (15:02)
== END 2022-12-11 17:59 | disposition home or self-care (01) ==
LOC: ER 10:34 → PCU 15:31
PROVIDERS: Family Medicine; Physician Assistant; Student in an Organized Health Care Education/Training Program; ADMIT Hospitalist
DX: J96.01 Acute respiratory failure with hypoxia (principal); I50.31 Acute diastolic (congestive) heart failure; I48.20 Chronic atrial fibrillation, unspecified; N18.31 Chronic kidney disease, stage 3a; K21.9 Gastro-esophageal reflux disease without esophagitis; F17.210 Nicotine dependence, cigarettes, uncomplicated; Z95.2 Presence of prosthetic heart valve; Z95.0 Presence of cardiac pacemaker; Z88.6 Allergy status to analgesic agent; Z88.8 Allergy status to other drugs, medicaments and biological substances; Z79.01 Long term (current) use of anticoagulants; Z79.899 Other long term (current) drug therapy
CPT/HCPCS: 36415; 71046; 71260; 80053; 80162; 83735; 83880; 84145; 84484; 85025; 93005; 93010; 94640; 94644; 94664; 94761; 94762; A9270; J0696; J1940; J3475; J7512; Q9967

== ENCOUNTER → 2023-12-04 | Outpatient (CLI) | payer OTHER ==
[~2023-12-04] MED LIST changes: +POTA10T PO; +PROPAFENONE HC225 MG PO; +TORSE20 PO
[2023-12-05 12:43] LABS: Stool Occult Bld Immuno 1 Negative (NEGATIVE)
== END | disposition home or self-care (01) ==
LOC: LAB SHORT 08:40 → LAB 08:40
PROVIDERS: Family Medicine
DX: Z12.11 Encounter for screening for malignant neoplasm of colon (principal)
CPT/HCPCS: G0328

== ENCOUNTER 2024-01-20 10:29 | Inpatient (IN) | payer OTHER ==
[~2024-01-20] VITALS: Ht 160 cm; Wt 71.3 kg
[~2024-01-20 10:29] MED LIST changes: +DILT180 PO; -ESOMEPRAZOLE MA20 MG PO; +ESOMEPRAZOLE MA40 MG PO; +XARELTO15 MG PO
[2024-01-20 11:50] LABS: Influenza A, PCR NEGATIVE (NEGATIVE); Influenza B, PCR NEGATIVE (NEGATIVE); Resp Syncytial Virus, PCR NEGATIVE (NEGATIVE); SARS-Cov-2 (COVID-19) PCR, MMC NEGATIVE (NEGATIVE)
[2024-01-20 12:18] LABS: BASOPHILS ABSOLUTE AUTO 0.06 K/mm3 (0.00-0.23); BASOPHILS PERCENT AUTO 1 % (0-2); EOSINOPHILS ABSOLUTE AUTO 0.04 K/mm3 (0.00-0.68); EOSINOPHILS PERCENT AUTO 1 % (0-6); Hematocrit 35.9 % (33.0-51.0); Hemoglobin 10.1 g/dL (11.5-16.0); IMMATURE GRAN ABSOLUTE AUTO 0.04 K/mm3 (0.00-0.10); IMMATURE GRAN PERCENT AUTO 1 % (0-1); LYMPHOCYTES PERCENT AUTO 22 % (21-46); MONOCYTES ABSOLUTE AUTO 0.49 K/mm3 (0.16-1.47); MONOCYTES PERCENT AUTO 7 % (4-13); Mean Corpuscular HGB 20.9 pg (26.0-34.0); Mean Corpuscular HGB Conc 28.1 g/dL (31.5-36.5); Mean Corpuscular Volume 74 fL (80-100); Mean Platelet Volume 10.2 fL (9.1-12.4); NEUTROPHILS PERCENT AUTO 70 % (41-73); NRBC ABSOLUTE 0.05 K/mm3 (0.00-0.02); NRBC Auto 0.7 /100 WBC (0.0-0.2); Platelet Count 126 K/mm3 (150-400); RDW Coefficient Variation 19.2 % (11.7-14.2); RDW Standard Deviation 50.6 fL (35.1-46.3); Red Blood Cell Count 4.83 M/mm3 (3.80-5.20); White Blood Cell Count 7.43 K/mm3 (4.00-11.30)
[2024-01-20 12:45] LABS: Albumin, Blood 3.6 g/dL (3.4-5.0); Albumin/Globulin Ratio 0.9 (0.8-1.8); Bilirubin, Total 1.7 mg/dL (0.1-1.0); Bun/Creatinine Ratio 19.1 (12.0-20.0); Calcium, Blood 9.7 mg/dL (8.5-10.1); Creatinine, Blood 1.83 mg/dL (0.40-1.00); Potassium, Blood 4.6 mmol/L (3.5-5.5); Total Protein, Blood 7.6 g/dL (6.4-8.2)
[2024-01-20] MEDS ORDERED: Furosemide 10 MG/ML 4ML Vial IV ONE (14:40)
[2024-01-20] MEDS ORDERED: Acetaminophen 325 MG TABLET PO PRN (15:25)
--- NOTE | 2024-01-20 16:40 | NUR ---
CALL FROM NEPTALI ARZOLA RN IN ED FOR REPORT.
[2024-01-20 16:56] VITALS: BP 101/81
[2024-01-20] MEDS ORDERED: Rivaroxaban 10 MG Tab PO SCH (18:00)
--- NOTE | 2024-01-20 19:35 | NUR ---
DAY SHIFT SUMMARY: A&Ox4. PLEASANT AND COOPERATIVE WITH CARE. CALLS APPROPRIATELY AND IS ABLE TO COMMUNICATE NEEDS EFFECTIVELY. TELE JUNCTIONAL RHYTHM, PACED. ATE DINNER; INDEPENDENT WITH MEALS. TAKES MEDS WHOLE WITH FLUIDS WITHOUT ISSUE. MEDICATION LIST RECONCILED UPON ADMIT. DAILY WEIGHTS AND STRICKS Is/Os. RT NOTIFIED OF NEED FOR CONTINUOUS BiOx. 2LPM O2 @ BASELINE, REQUIRING 4LPM HERE. RHALES NOTED IN BILATERAL BASES. REPORT TO ONCOMING RN.
[2024-01-20 19:54] VITALS: BP 96/74
[2024-01-20] MEDS ORDERED: PROPAFENONE HCL 150 MG PO SCH (21:00)
[2024-01-21] VITALS (10 sets, daily range): BP systolic 86–102; BP diastolic 61–79
--- NOTE | 2024-01-21 04:35 | NUR ---
SHIFT SUMMARY ADMITTED FOR CHF. FULL CODE. DIURESING. ECHO PLANNED FOR TODAY POSSIBLY. STRICT I&O'S. TELEMETRY: TACHY @ [address]. PROSTHETIC AORTIC VALVE. RENAL DIET. 1 ASSIST W/FWW -BRP THIS SHIFT. MONITORING ELEVATED BNP LABS 2340. A&O X3. 4 LPM O2 VIA NC HERE. 2 LPM O2 VIA NC @ BASELINE.
[2024-01-21] MEDS ORDERED: Pantoprazole Sodium 40 MG Tab PO SCH (06:00)
[2024-01-21 06:10] LABS: BASOPHILS ABSOLUTE AUTO 0.05 K/mm3 (0.00-0.23); BASOPHILS PERCENT AUTO 1 % (0-2); EOSINOPHILS ABSOLUTE AUTO 0.05 K/mm3 (0.00-0.68); EOSINOPHILS PERCENT AUTO 1 % (0-6); Hematocrit 30.9 % (33.0-51.0); Hemoglobin 8.7 g/dL (11.5-16.0); IMMATURE GRAN ABSOLUTE AUTO 0.03 K/mm3 (0.00-0.10); IMMATURE GRAN PERCENT AUTO 1 % (0-1); LYMPHOCYTES ABSOLUTE AUTO 1.28 K/mm3 (0.84-5.20); LYMPHOCYTES PERCENT AUTO 22 % (21-46); MONOCYTES PERCENT AUTO 7 % (4-13); Mean Corpuscular HGB 20.6 pg (26.0-34.0); Mean Corpuscular HGB Conc 28.2 g/dL (31.5-36.5); Mean Corpuscular Volume 73 fL (80-100); Mean Platelet Volume 9.6 fL (9.1-12.4); NEUTROPHILS ABSOLUTE AUTO 3.97 K/mm3 (1.96-9.15); NEUTROPHILS PERCENT AUTO 69 % (41-73); NRBC ABSOLUTE 0.03 K/mm3 (0.00-0.02); NRBC Auto 0.5 /100 WBC (0.0-0.2); Platelet Count 102 K/mm3 (150-400); RDW Coefficient Variation 18.9 % (11.7-14.2); Red Blood Cell Count 4.22 M/mm3 (3.80-5.20); White Blood Cell Count 5.78 K/mm3 (4.00-11.30)
[2024-01-21 06:46] LABS: Bun/Creatinine Ratio 19.6 (12.0-20.0); Calcium, Blood 8.9 mg/dL (8.5-10.1); Creatinine, Blood 1.99 mg/dL (0.40-1.00); Potassium, Blood 4.2 mmol/L (3.5-5.5)
--- NOTE | 2024-01-21 08:48 | NUR ---
AM ASSESSMENT: PATIENT SBP AT 0735 91/79 c HR OF 99 BPM, RECHECK AT 0841 SBP 97/66 c HR OF 100 BPM. PATIENT HAS SCHEDULED AM MEDS TO BE GIVEN SUCH ; CARDIZEM PO, IV LASIX, RYTHMOL PO AND ATENOLOL PO. THIS RN IS CONCERNED c PATIENT SOFT BP. NOTIFIED DR. DURAN REGARDING THIS CONCERNED. RECEIVED ORDER FROM DR. DURAN TO HOLD PO CARDIZEM, IV LASIX, PO RYTHMOL AND GIVE PO ATENOLOL ONLY. THIS RN MENTIONED TO DR. DURAN PARAMETER IN EMAR FOR ATENOLOL TO HOLD IF SBP LESS THAN 120. PER DR. DURAN HE WILL CHANGED THE PARAMETER HIMSELF TO HOLD IF SBP LESS THAN 90.
[2024-01-21] MEDS ORDERED: Furosemide 10 MG/ML 4ML Vial IV SCH ×2 (09:00)
[2024-01-21] MEDS ORDERED: Atenolol 25 MG Tab PO SCH (09:00)
[2024-01-21] MEDS ORDERED: Diltiazem HCl 180 MG Cap.CD PO SCH (09:00)
--- NOTE | 2024-01-21 10:23 | NUR ---
NOTE: PER DR. DURAN TO RECHECKED BP AT 1000 IF SBP BP STILL IN THE 90'S. GIVE THE DOSE OF PO DELTIAZEM. PATIENT SBP AT 1001 97/66 c HR OF 100 BPM.
[2024-01-21] MEDS ORDERED: LORazepam 0.5 MG Tab PO ONE (14:00)
--- NOTE | 2024-01-21 16:34 | NUR ---
SHIFT SUMMARY: PATIENT A/OX4, [place], PLEASANT AND COOPERATIVE c CARE. PATIENT DENIES CP/PRESSURE, SOB, N/V AND DIZZINESS. PATIENT ON TELE, JUNCTIONAL RYTHM c BBB, PROLONG QTC HR AT 100 BPM. PATIENT SBP SOFT THIS SHIFT, DR. DURAN IS AWARE OF THIS ISSUE. PATIENT O2 AT BASELINE 2L VIA NC c SPO2 90-94%, CONTINUES PULSE OX AT BEDSIDE. PATIENT CONTIN OF BOWEL/BLADDER, AMBULATES TO BATHROOM/BSC AND BACK IN BED c SBA/FWW. PATIENT REPORTS BEING ANXIOUS TODAY D/T MEDICAL CONDITION. MEDICATED c OT DOSE PO ANXIETY MED c GOOD EFFECT. PATIENT HAD ECHO DONE c RESULT. PATIENT HAS NO COMPLAINTS OR DENIES NEW CONCERNED THIS SHIFT. CALL LIGHT IN REACH.
--- NOTE | 2024-01-21 17:10 | NUR ---
NOTE: PATIENT HAS SCHEDULED LASIX TO BE GIVEN; VITAL SIGNS TAKEN AT 1700 92/71 c HR OF [address] DURAN REGARDING THIS CONCERNED. RECEIVED ORDER TO HOLD LASIX DOSE NOW.
--- NOTE | 2024-01-21 20:24 | NUR ---
@2019 PT NAUSEOUS, NO VOMIT. BP: 93/68, P.88, [id number]. TELE: NORMAL SINUS 86. o2 cont. sats went from 90% on biox at 2l to 89-85. RT CALLED, CRACKELS ON BACK LS, RECOMMENDATION: CPAP/BIPAPVBG. PT HAS HX OF CHF. PER DAY SHIFT NURSE, MANJU AND BP MEDS HELD D/T LOW BP. TIERA MACHINE OPERATOR. NOTIFIED BY THIS URSE , ABLE TO REACH AT 2009. CHARGE NURSE NOTIFIED.O2 INCREASED FROM 2L TO 3-4L VIA NC, PLACED BY THE MOUTH PER RT. RECOMMENDATION, HOB UP. NIECE AND MINOR BY THE BEDSIDE. AWAITING FOR ORDERS FROM GARRICK.TIERA. PER PT.RECORD NO ZOFRAN ORDER D/T PROLONGED QTC.
--- NOTE | 2024-01-21 21:15 | NUR ---
DR. PEREZ BY BEDSIDE, PT HAS APAP O2 94, C/O "HEAVY" CHEST. LEOLA THOMAS BY THE BEDSIDE. O2 5L.
--- NOTE | 2024-01-21 21:24 | NUR ---
MANUAL BP RECORDED 90/72, ENTERED TO VS INTERVENTIONS.
[2024-01-22 02:39] VITALS: BP 92/71
--- NOTE | 2024-01-22 04:33 | NUR ---
SHIFT SUMMARY AT THE BEGINNING OF THIS SHIFT, PT. C/O SOB, 'HEAVY" CHEST. PT'S NIECE BY THE BEDSIDE.PT. ON 2-3L VIA NC, CONT.O2 MONITORING; HIGH 80'S. THIS NURSE CALLED RT WHO RECOMMENDED CPAP/BIPAP PROTOCOL- 6-7 L, O2 AROUND MID 90'S. (SEE PREVIOUS NOTES.) DR. MCKEON BY BEDSIDE MONITORING TELE, AND EKG DONE BY INSTRUMENT MECHANIC TAMRA. AT MIDSHIFT, PT. RESTLESS WITH THE BIPAP MASK- OXYMASK PUT ON PT. 8-9L O2, PER RT.RECOMMENDATION. O2 SAT'S 86-95% PT. HAS LOW URINE OUTPUT DURING THIS SHIFT, ENCOURAGED FLUIDS PO (WILL ALSO PASS ON TO THE INCOMING SHIFT NURSE.) PT HAS BEEN ALERT T/O THIS SHIFT AND ORIENTED X4. PT. REPORTS FEELING BETTER THIS EARLY AM. PER VERBAL ORDEER FROM DR. MCKEON- HELD HS MEDICATION ("HOLD ALL BP AND DIURETICS FOR NOW.) PT. SFT BP'S, PT.DENIES DIZZINESS OR DISCOMFORT. TELE: NORMAL SINUS RHYTHM 62, V-PACED. BED AT THE LOWEST POSITION, CALL LIGHT IN REACH. [id number] AND REPOSITIONING IN BED. WILL HANDOFF TO THE INCOMING SHIFT NURSE.
[2024-01-22 05:52] LABS: BASOPHILS ABSOLUTE AUTO 0.03 K/mm3 (0.00-0.23); BASOPHILS PERCENT AUTO 1 % (0-2); EOSINOPHILS ABSOLUTE AUTO 0.02 K/mm3 (0.00-0.68); EOSINOPHILS PERCENT AUTO 0 % (0-6); Hematocrit 29.2 % (33.0-51.0); Hemoglobin 8.5 g/dL (11.5-16.0); IMMATURE GRAN ABSOLUTE AUTO 0.03 K/mm3 (0.00-0.10); IMMATURE GRAN PERCENT AUTO 1 % (0-1); LYMPHOCYTES PERCENT AUTO 20 % (21-46); MONOCYTES ABSOLUTE AUTO 0.53 K/mm3 (0.16-1.47); MONOCYTES PERCENT AUTO 9 % (4-13); Mean Corpuscular HGB 20.8 pg (26.0-34.0); Mean Corpuscular HGB Conc 29.1 g/dL (31.5-36.5); Mean Corpuscular Volume 71 fL (80-100); Mean Platelet Volume 9.7 fL (9.1-12.4); NEUTROPHILS ABSOLUTE AUTO 4.26 K/mm3 (1.96-9.15); NEUTROPHILS PERCENT AUTO 70 % (41-73); NRBC ABSOLUTE 0.02 K/mm3 (0.00-0.02); NRBC Auto 0.3 /100 WBC (0.0-0.2); Platelet Count 91 K/mm3 (150-400); RDW Coefficient Variation 18.6 % (11.7-14.2); Red Blood Cell Count 4.09 M/mm3 (3.80-5.20); White Blood Cell Count 6.07 K/mm3 (4.00-11.30)
[2024-01-22 06:21] LABS: Albumin, Blood 2.9 g/dL (3.4-5.0); Albumin/Globulin Ratio 0.9 (0.8-1.8); Bilirubin, Total 1.7 mg/dL (0.1-1.0); Bun/Creatinine Ratio 22.5 (12.0-20.0); Calcium, Blood 9.1 mg/dL (8.5-10.1); Globulin, Blood 3.3 g/dL (2.2-4.0); Potassium, Blood 4.4 mmol/L (3.5-5.5); Total Protein, Blood 6.2 g/dL (6.4-8.2)
[2024-01-22 07:35] VITALS: BP 101/64
[2024-01-22] MEDS ORDERED: Magnesium Sulf 2 GM/Water 50ML 50 ML IV ONE (11:55)
--- NOTE | 2024-01-22 14:43 | NUR ---
SHIFT SUMMARY PT RESTING QUIETLY AT START OF SHIFT. WOKE EASILY FOR REPORT, BUT VERY [place]. PT'S O2 DECREASED TO 5L VIA VENTIMASK BY RT AFTER REPORT. PT LATER DECREASED TO 3L WHEN DR GARCIA IN TO TALK WITH PT. PT PLACED BACK ON N/C @ 3L TO EAT BREAKFAST AND HAS REMAINED ON 3L VIA N/C TO PRESENT. BP WNL'S TO GIVE LASIX THIS AM. PT UP TO BSC WITH 1P SBA NEEDED. NPO AFTER BREAKFAST UNTIL ABD US DONE AT 1300. MAG RIDER NEARING COMPLETION AT THIS TIME. PT RESTING QUIETLY, WANTING DOOR CLOSED TO TAKE A NAP. CALL LT IN REACH.
[2024-01-22 15:39] VITALS: BP 89/64
[2024-01-22] MEDS ORDERED: BUPR100ER PO (15:53)
[2024-01-22] MEDS ORDERED: FLUO10 PO (15:55)
[2024-01-22] MEDS ORDERED: Furosemide 10 MG/ML 4ML Vial IV SCH (18:00)
[2024-01-22 19:46] VITALS: BP 77/51
[2024-01-22 20:41] VITALS: BP 90/52
--- NOTE | 2024-01-22 23:31 | NUR ---
Respiratory: Patient has removed her CPAP, "it's hurting my face". Patient was found with sat of 79% on RA. 5L nc was applied, sat is now 92%. RT was notified of change.
[2024-01-22 23:58] VITALS: BP 84/60
[2024-01-23] VITALS (7 sets, daily range): BP systolic 71–113; BP diastolic 50–76
[2024-01-23 05:49] LABS: BASOPHILS ABSOLUTE AUTO 0.03 K/mm3 (0.00-0.23); BASOPHILS PERCENT AUTO 1 % (0-2); EOSINOPHILS ABSOLUTE AUTO 0.04 K/mm3 (0.00-0.68); EOSINOPHILS PERCENT AUTO 1 % (0-6); Hematocrit 29.7 % (33.0-51.0); Hemoglobin 8.7 g/dL (11.5-16.0); IMMATURE GRAN ABSOLUTE AUTO 0.03 K/mm3 (0.00-0.10); IMMATURE GRAN PERCENT AUTO 1 % (0-1); LYMPHOCYTES ABSOLUTE AUTO 1.43 K/mm3 (0.84-5.20); LYMPHOCYTES PERCENT AUTO 23 % (21-46); MONOCYTES ABSOLUTE AUTO 0.42 K/mm3 (0.16-1.47); MONOCYTES PERCENT AUTO 7 % (4-13); Mean Corpuscular HGB 20.9 pg (26.0-34.0); Mean Corpuscular HGB Conc 29.3 g/dL (31.5-36.5); Mean Corpuscular Volume 71 fL (80-100); Mean Platelet Volume 10.2 fL (9.1-12.4); NEUTROPHILS ABSOLUTE AUTO 4.33 K/mm3 (1.96-9.15); NEUTROPHILS PERCENT AUTO 69 % (41-73); NRBC ABSOLUTE 0.04 K/mm3 (0.00-0.02); NRBC Auto 0.6 /100 WBC (0.0-0.2); Platelet Count 104 K/mm3 (150-400); RDW Coefficient Variation 18.9 % (11.7-14.2); RDW Standard Deviation 47.9 fL (35.1-46.3); Red Blood Cell Count 4.16 M/mm3 (3.80-5.20); White Blood Cell Count 6.28 K/mm3 (4.00-11.30)
--- NOTE | 2024-01-23 06:38 | NUR ---
SHIFT SUMMARY: Patient was able to tolerate CPAP for a good part of the night but did alternate 02 deliver a few times through the night utilizing NC,CPAP and Oxymask. CPAP had an 8L bleed in. NC and oxymask requiring 8 L at times. Patient is now on the NC with a saturation of 96%. Urine output for the shift was 350ml. SBP's in the 80-90, no dizziness reported when getting up or at rest.
[2024-01-23 06:48] LABS: Albumin/Globulin Ratio 0.9 (0.8-1.8); Bun/Creatinine Ratio 24.3 (12.0-20.0); Calcium, Blood 9.1 mg/dL (8.5-10.1); Creatinine, Blood 2.1 mg/dL (0.40-1.00); Globulin, Blood 3.4 g/dL (2.2-4.0); Magnesium, Blood 2.5 mg/dL (1.6-2.4); Potassium, Blood 4.4 mmol/L (3.5-5.5); Total Protein, Blood 6.4 g/dL (6.4-8.2)
[2024-01-23] MEDS ORDERED: Furosemide 10 MG / ML 2ML Vial IV SCH (08:00)
--- NOTE | 2024-01-23 16:39 | NUR ---
SHIFT SUMMARY: PT A&O X4. PLEASANT AND COOPERATIVE WITH CARE. NO ACUTE CHANGES THIS SHIFT. PT LUCINDA COMPLETED THIS SHIFT. PT HAS RESTED WELL THROUGHOUT DAY. 02 SATS FLUCTUATED BETWEEN HIGH 80'S TO MID 90'S. 02 INCREASED TO 4L. TELE CALLED THIS AM WITH RESULTS OF A PROLONGED QTC BUT STATED THIS PT HAS BEEN PROLONGED FOR 1-2 DAYS. IV DIURETICS PROVIDED; TOLERATED WELL. HYPOTENSIVE WITH AFTERNOON VITALS OF 90/59. CALL LIGHT IN REACH. BED IN LOWEST POSITION.
[2024-01-23] MEDS ORDERED: NS 250 ML IV ONE (23:30)
--- NOTE | 2024-01-23 23:43 | NUR ---
PT HAD TO GET UP TO USE BSC AND HAD C/O OF DIZZYNESS AND SOB. PT ON CONTINOUS PULSE OXIMETRY AND SPO2 >90%, O2 INCREASED TO 6L/NC. VS CHECKED AND BP 71/61 IN RA 82/57 IN LA. PT BP IS SOFT BASELINE. HOSPITALIST CALLED AND ONE TIME BOLUS OF 250ML NS ORDERED. WILL RECHECK BP AFTER BOLUS IS COMPLETE.
[2024-01-24] VITALS (7 sets, daily range): BP systolic 82–110; BP diastolic 57–79
--- NOTE | 2024-01-24 04:55 | NUR ---
SHIFT SUMMARY NOC PT A/O X 4. PLEASANT AND COOPERATIVE WITH CARE. BP SOFT, SPOT CHECK BP TAKEN WHEN PT HAD C/D OF DIZZYNESS WHEN GETTING UP TO BSC, FIRST BP 71/61 AND SECOND 82/57, HOSPITALIST NOTIFIED AND ONE TIME BOLUS OF NS 250 ML GIVEN. BP INCREASED TO 91/57 AFTER BOLUS. PT ON O2 5L/NC SPO2 >92% BEING MONITORED VIA CONTINOUS PULSE OXIMETRY. ON STRICT I/O DUE TO VOLUME OVERLOAD. PT HAS PT/OT EVALUATION ORDERED TO PLAN DISCHARGE PLANS. PT ON TELE RUNNING JUNCTIONAL RHYTHM IN 70'S. PT ALSO DAILY WT TO MONITOR DIURECTIC EFFECTIVENESS. PT CURRENTLY RESTING WITH BED IN LOWEST POSITION, AND CALL LIGHT WITHIN REACH.
[2024-01-24 05:27] LABS: BASOPHILS ABSOLUTE AUTO 0.03 K/mm3 (0.00-0.23); BASOPHILS PERCENT AUTO 1 % (0-2); EOSINOPHILS ABSOLUTE AUTO 0.05 K/mm3 (0.00-0.68); EOSINOPHILS PERCENT AUTO 1 % (0-6); Hematocrit 30.6 % (33.0-51.0); Hemoglobin 8.6 g/dL (11.5-16.0); IMMATURE GRAN ABSOLUTE AUTO 0.04 K/mm3 (0.00-0.10); IMMATURE GRAN PERCENT AUTO 1 % (0-1); LYMPHOCYTES ABSOLUTE AUTO 0.99 K/mm3 (0.84-5.20); LYMPHOCYTES PERCENT AUTO 16 % (21-46); MONOCYTES ABSOLUTE AUTO 0.45 K/mm3 (0.16-1.47); MONOCYTES PERCENT AUTO 8 % (4-13); Mean Corpuscular HGB 20.4 pg (26.0-34.0); Mean Corpuscular HGB Conc 28.1 g/dL (31.5-36.5); Mean Corpuscular Volume 73 fL (80-100); NEUTROPHILS ABSOLUTE AUTO 4.47 K/mm3 (1.96-9.15); NEUTROPHILS PERCENT AUTO 74 % (41-73); NRBC ABSOLUTE 0.06 K/mm3 (0.00-0.02); Platelet Count 82 K/mm3 (150-400); RDW Coefficient Variation 19.2 % (11.7-14.2); RDW Standard Deviation 49.4 fL (35.1-46.3); Red Blood Cell Count 4.21 M/mm3 (3.80-5.20); White Blood Cell Count 6.03 K/mm3 (4.00-11.30)
[2024-01-24 05:34] LABS: Mean Platelet Volume 10.3 fL (9.1-12.4)
[2024-01-24 05:54] LABS: Albumin, Blood 2.9 g/dL (3.4-5.0); Albumin/Globulin Ratio 0.9 (0.8-1.8); Bilirubin, Total 1.9 mg/dL (0.1-1.0); Bun/Creatinine Ratio 25.8 (12.0-20.0); Calcium, Blood 8.8 mg/dL (8.5-10.1); Creatinine, Blood 1.98 mg/dL (0.40-1.00); Globulin, Blood 3.3 g/dL (2.2-4.0); Potassium, Blood 3.8 mmol/L (3.5-5.5); Total Protein, Blood 6.2 g/dL (6.4-8.2)
[2024-01-24] MEDS ORDERED: Furosemide 10 MG / ML 2ML Vial IV SCH (10:00)
[2024-01-24 16:54] LABS: Albumin, Blood 3.2 g/dL (3.4-5.0); Albumin/Globulin Ratio 0.9 (0.8-1.8); Bilirubin, Total 2.3 mg/dL (0.1-1.0); Bun/Creatinine Ratio 24.2 (12.0-20.0); Calcium, Blood 8.6 mg/dL (8.5-10.1); Creatinine, Blood 2.07 mg/dL (0.40-1.00); Globulin, Blood 3.4 g/dL (2.2-4.0); Potassium, Blood 4.1 mmol/L (3.5-5.5); Total Protein, Blood 6.6 g/dL (6.4-8.2)
--- NOTE | 2024-01-24 17:00 | NUR ---
SHIFT SUMMARY AND DISCHARGE PATIENT ALERT AND INTERACTIVE. PATIENT ABLE TO GET UP TO BSC WITH ASSISTANCE. PATIENT HAVING EPISODES OF SHORTNESS OF BREATH AND CHEST DISCOMFORT. BIOX LABILE. NO SIGNIFICANT RESPONSE TO IV LASIX. PATIENT PALE DR. DURAN NOTIFIED OF PATIENT CONTINUING TO BE HYPOTENSIVE, HAVING EPISODES OF UNABLE TO CATCH HER BREATH. O2 INCREASED THROUGHOUT THE SHIFT. PATIENT PLACED ON CPAP FOR A SHORT PERIOD WHILE SHORT OF BREATH. PATIENT TRANSFERED TO PCU BECAUSE OF HYPOTENSION, SHORTNESS OF BREATH, AND LOW BIOX. REPORT CALLED TO PCU. PATIENT TAKEN DOWN VIA BED. FAMILY PRESENT AND HELPED WITH PERSONAL BELONGINGS.
--- NOTE | 2024-01-24 17:23 | NUR ---
ARRIVAL TO PCU PT ARRIVES TO PCU AT APPROX 1715 VIA BED. PT ALERT AND ABLE TO ANSWER QUESTIONS APPROPRIATELY. SHE IS [place] WITH FAMILY AT BEDSIDE. HER BP IS STABLE WITH A MAP OF 75. HR IS PACED AT 60. SHE IS ON 6L NC WITH SPO2 >90%. SHE COMPLAINS OF SOB. NOTIFIED OF LACTIC CRITICAL RESULTS. CHARGE NURSE AT BEDSIDE TO PLACE A POWERGLIDE
[2024-01-24] MEDS ORDERED: Lactated Ringer's 1,000 ML IV SCH (17:30)
[2024-01-24] MEDS ORDERED: NS 250 ML IV PRN (17:45)
[2024-01-24] MEDS ORDERED: CefTRIAXone Sodium 2,000 MG in NS 100 ML IV SCH (18:00)
[2024-01-24] MEDS ORDERED: PROPAFENONE HCL 150 MG PO SCH (21:00)
--- NOTE | 2024-01-24 22:11 | NUR ---
PT IS ALERT AND ORIENTED X 4, COOPERATIVE WITH CARE AND ABLE TO MAKE NEEDS KNOWN. SHE IS [place]. PT ON 6L NC AND MAINTAINING 02 SATURATION ABOVE 90%, SOB W/EXERTION. PT'S HR PACED 60'S, SHE DENIES CHEST PAIN/PRESSURE, BP STABLE. PT IS CONTINENT OF BLADDER AND BOWELS, BEDSIDE COMMODE W/1 ASSIST. POWERGLIDE TO L UPPER ARM IS PATENT AND INFUSING PER EMAR. PT HAD FAMILY AT BEDSIDE AT BEGINNING OF SHIFT. SHE ATE DINNER AND TOLERATED WELL. PT SAID THAT SHE IS FEELING BETTER THAN SHE DID WHEN SHE WAS FIRST ADMITTED. PT RESTING IN BED AND CALL LIGHT WITHIN REACH.
[2024-01-25] VITALS (7 sets, daily range): BP systolic 90–121; BP diastolic 62–87
[2024-01-25 04:15] LABS: BASOPHILS ABSOLUTE AUTO 0.02 K/mm3 (0.00-0.23); BASOPHILS PERCENT AUTO 0 % (0-2); EOSINOPHILS ABSOLUTE AUTO 0.04 K/mm3 (0.00-0.68); EOSINOPHILS PERCENT AUTO 1 % (0-6); Hematocrit 29.7 % (33.0-51.0); Hemoglobin 8.6 g/dL (11.5-16.0); IMMATURE GRAN ABSOLUTE AUTO 0.05 K/mm3 (0.00-0.10); IMMATURE GRAN PERCENT AUTO 1 % (0-1); LYMPHOCYTES ABSOLUTE AUTO 1.33 K/mm3 (0.84-5.20); LYMPHOCYTES PERCENT AUTO 19 % (21-46); MONOCYTES ABSOLUTE AUTO 0.53 K/mm3 (0.16-1.47); MONOCYTES PERCENT AUTO 7 % (4-13); Mean Corpuscular HGB 20.8 pg (26.0-34.0); Mean Corpuscular Volume 72 fL (80-100); Mean Platelet Volume 10.6 fL (9.1-12.4); NEUTROPHILS ABSOLUTE AUTO 5.21 K/mm3 (1.96-9.15); NEUTROPHILS PERCENT AUTO 73 % (41-73); NRBC ABSOLUTE 0.08 K/mm3 (0.00-0.02); NRBC Auto 1.1 /100 WBC (0.0-0.2); Platelet Count 87 K/mm3 (150-400); RDW Coefficient Variation 18.9 % (11.7-14.2); RDW Standard Deviation 47.9 fL (35.1-46.3); Red Blood Cell Count 4.14 M/mm3 (3.80-5.20); White Blood Cell Count 7.18 K/mm3 (4.00-11.30)
[2024-01-25 04:35] LABS: Albumin/Globulin Ratio 0.9 (0.8-1.8); Bilirubin, Total 1.5 mg/dL (0.1-1.0); Bun/Creatinine Ratio 24.4 (12.0-20.0); Calcium, Blood 8.8 mg/dL (8.5-10.1); Creatinine, Blood 2.01 mg/dL (0.40-1.00); Globulin, Blood 3.4 g/dL (2.2-4.0); Potassium, Blood 4.1 mmol/L (3.5-5.5); Total Protein, Blood 6.4 g/dL (6.4-8.2)
--- NOTE | 2024-01-25 06:28 | NUR ---
NO ACUTE CHANGES, SEE PREVIOUS NOTE.
[2024-01-25] MEDS ORDERED: Lactated Ringer's 1,000 ML IV SCH (07:55)
[2024-01-25] MEDS ORDERED: PROPAFENONE HCL 150 MG PO SCH (08:00)
[2024-01-25] MEDS ORDERED: Atenolol 25 MG Tab PO SCH (09:00)
--- NOTE | 2024-01-25 12:39 | NUR ---
Assumed care from primary RN for 30 minute lunch. No adverse events during lunch. Primary RN reassumed care.
[2024-01-25 15:36] LABS: Albumin, Blood 2.7 g/dL (3.4-5.0); Albumin/Globulin Ratio 0.9 (0.8-1.8); Bilirubin, Total 1.4 mg/dL (0.1-1.0); Bun/Creatinine Ratio 23.4 (12.0-20.0); Calcium, Blood 7.9 mg/dL (8.5-10.1); Creatinine, Blood 2.01 mg/dL (0.40-1.00); Globulin, Blood 2.9 g/dL (2.2-4.0); Potassium, Blood 3.7 mmol/L (3.5-5.5); Total Protein, Blood 5.6 g/dL (6.4-8.2)
[2024-01-25] MEDS ORDERED: Lactated Ringer's 500 ML IV SCH (16:45)
[2024-01-25] MEDS ORDERED: Polyethylene Glycol 3350 17 gm PO PRN (17:00)
[2024-01-25] MEDS ORDERED: Docusate Sodium/Senna 1 Tab PO PRN (17:00)
[2024-01-25] MEDS ORDERED: Polyethylene Glycol 3350 17 gm PO ONE (17:00)
[2024-01-25] MEDS ORDERED: Docusate Sodium/Senna 1 Tab PO ONE (17:00)
[2024-01-25] MEDS ORDERED: CefTRIAXone Sodium 1,000 MG in NS 100 ML IV SCH (18:00)
--- NOTE | 2024-01-25 18:28 | NUR ---
SHIFT SUMMARY; ASSUMED CARE AT 0700. A/A/OX4. REPOSITIONS SELF IN BED WITH ECOURAGEMENT. UP TO BEDSIDE COMMODE WITH ASSISTANCE. SAT IN RECLINER CHAIR FOR APPROX 2 HOURS. WHEN ASLEEP DURING SHIFT REQUIRED CPAP TO MAINTAIN SATS. SATS DECREASED TO 80% ON 6L VIA NC WHEN ASLEEP. INCREASED TO 99% WITH CPAP. BED BATH TODAY AND ORAL CARE COMPLETED. PLEASANT AND COOPERATIVE WITH CARE. WILL CONTINUE TO MONITOR AND TREAT UNTIL CHANGE OF SHIFT.
[2024-01-26 03:45] VITALS: BP 98/70
[2024-01-26 04:01] LABS: BASOPHILS ABSOLUTE AUTO 0.02 K/mm3 (0.00-0.23); BASOPHILS PERCENT AUTO 0 % (0-2); EOSINOPHILS ABSOLUTE AUTO 0.05 K/mm3 (0.00-0.68); EOSINOPHILS PERCENT AUTO 1 % (0-6); Hematocrit 28.1 % (33.0-51.0); Hemoglobin 8.1 g/dL (11.5-16.0); IMMATURE GRAN ABSOLUTE AUTO 0.03 K/mm3 (0.00-0.10); IMMATURE GRAN PERCENT AUTO 1 % (0-1); LYMPHOCYTES ABSOLUTE AUTO 1.11 K/mm3 (0.84-5.20); LYMPHOCYTES PERCENT AUTO 18 % (21-46); MONOCYTES ABSOLUTE AUTO 0.44 K/mm3 (0.16-1.47); MONOCYTES PERCENT AUTO 7 % (4-13); Mean Corpuscular HGB 20.6 pg (26.0-34.0); Mean Corpuscular HGB Conc 28.8 g/dL (31.5-36.5); Mean Corpuscular Volume 72 fL (80-100); Mean Platelet Volume 9.8 fL (9.1-12.4); NEUTROPHILS ABSOLUTE AUTO 4.59 K/mm3 (1.96-9.15); NEUTROPHILS PERCENT AUTO 74 % (41-73); NRBC Auto 1.6 /100 WBC (0.0-0.2); Platelet Count 75 K/mm3 (150-400); RDW Coefficient Variation 19.1 % (11.7-14.2); RDW Standard Deviation 48.2 fL (35.1-46.3); Red Blood Cell Count 3.93 M/mm3 (3.80-5.20); White Blood Cell Count 6.24 K/mm3 (4.00-11.30)
[2024-01-26 04:24] LABS: Albumin, Blood 2.8 g/dL (3.4-5.0); Anion Gap 13 mmol/L (3-11); Blood Urea Nitrogen 46 mg/dL (8-24); Bun/Creatinine Ratio 25.7 (12.0-20.0); CO2, Blood 22 mmol/L (21-32); Calcium, Blood 8.7 mg/dL (8.5-10.1); Chloride, Blood 100 mmol/L (98-108); Creatinine, Blood 1.79 mg/dL (0.40-1.00); Glomerular Filtration Rate 29 (60-); Glucose, Blood 107 mg/dL (70-99); Phosphorus, Blood 3.6 mg/dL (2.5-4.9); Potassium, Blood 3.7 mmol/L (3.5-5.5); Sodium, Blood 131 mmol/L (136-145)
--- NOTE | 2024-01-26 04:33 | NUR ---
SHIFT SUMMARY NO ACUTE EVENTS OVERNIGHT. PATIENT SLEPT THROUGHOUT SHIFT, EASILY AROUSABLE WITH VERBAL STIMULI. IS ALERT AND ORIENTED X4. PERRLA. MOVES ALL EXTREMITIES EQUALLY WITH GENERALIZED WEAKNESS THROUGHOUT. IS [place], COMMUNICATES NEEDS EFFECTIVELY. TELEMETRY SHOWING V PACED 60s. BP SOFT, SBP 90s-100s. MAP >65. DENIES CHEST PAIN, PRESSURE. WHILE AWAKE, ON 6-10L VIA HI FLOW NC. DOES EXPERIENCE INCREASED SHORTNESS OF BREATH WITH MOBILITY REQUIRING ADDITIONAL OXYGEN TO RECOVER. DOES TEND TO DESAT WITH SLEEP - COMPLIANT WITH CPAP USE FOR SLEEP AND OR RESCUE. UP TO BSC WITH SBA FROM STAFF. REPOSITIONING HERSELF INDEPENDENTLY IN BED. CALL LIGHT IN REACH. WILL CONTINUE TO MONITOR AND REPORT TO ONCOMING RN.
[2024-01-26 07:26] VITALS: BP 95/79
[2024-01-26 11:28] VITALS: BP 105/74
[2024-01-26 18:15] LABS: Albumin, Blood 3.1 g/dL (3.4-5.0); Albumin/Globulin Ratio 0.9 (0.8-1.8); Bilirubin, Total 1.8 mg/dL (0.1-1.0); Bun/Creatinine Ratio 24.7 (12.0-20.0); Calcium, Blood 8.7 mg/dL (8.5-10.1); Creatinine, Blood 1.78 mg/dL (0.40-1.00); Globulin, Blood 3.4 g/dL (2.2-4.0); Potassium, Blood 3.8 mmol/L (3.5-5.5); Total Protein, Blood 6.5 g/dL (6.4-8.2)
--- NOTE | 2024-01-26 18:41 | NUR ---
SHIFT SUMMARY; ASSUMED CARE AT 0700. A/A/OX4. 4-7L 02 VIA NC DURING SHIFT. CPAP WHEN SLEEPING. SATS DECREASED TO 80'S IF NOT WEARING CPAP DURING SLEEPING. MOVING SELF ON GURNEY, UP TO BEDSIDE COMMODE WITH SBA. SAT IN RECLINER CHAIR IN MORNING. SAT ON SIDE OF BED IN EVENING WITH LEGS DANGLING. REFUSED PT/OT TODAY, STATED "JUST TO TIRED". ENCOURAGED MOVEMENT, VERBALIZED UNDERSTANDING. WILL CONTINUE TO MONITOR AND TREAT UNTIL CHANGE OF SHIFT.
[2024-01-26 19:39] VITALS: BP 100/71
[2024-01-26 23:08] VITALS: BP 117/74
[2024-01-27 03:41] VITALS: BP 99/63
[2024-01-27 03:53] LABS: BASOPHILS ABSOLUTE AUTO 0.03 K/mm3 (0.00-0.23); BASOPHILS PERCENT AUTO 1 % (0-2); EOSINOPHILS ABSOLUTE AUTO 0.07 K/mm3 (0.00-0.68); EOSINOPHILS PERCENT AUTO 1 % (0-6); Hematocrit 28.8 % (33.0-51.0); Hemoglobin 8.3 g/dL (11.5-16.0); IMMATURE GRAN ABSOLUTE AUTO 0.04 K/mm3 (0.00-0.10); IMMATURE GRAN PERCENT AUTO 1 % (0-1); LYMPHOCYTES ABSOLUTE AUTO 1.21 K/mm3 (0.84-5.20); LYMPHOCYTES PERCENT AUTO 19 % (21-46); MONOCYTES PERCENT AUTO 8 % (4-13); Mean Corpuscular HGB 20.6 pg (26.0-34.0); Mean Corpuscular HGB Conc 28.8 g/dL (31.5-36.5); Mean Corpuscular Volume 72 fL (80-100); Mean Platelet Volume 9.8 fL (9.1-12.4); NEUTROPHILS ABSOLUTE AUTO 4.67 K/mm3 (1.96-9.15); NEUTROPHILS PERCENT AUTO 72 % (41-73); NRBC ABSOLUTE 0.14 K/mm3 (0.00-0.02); NRBC Auto 2.1 /100 WBC (0.0-0.2); Platelet Count 70 K/mm3 (150-400); RDW Standard Deviation 48.5 fL (35.1-46.3); Red Blood Cell Count 4.02 M/mm3 (3.80-5.20); White Blood Cell Count 6.52 K/mm3 (4.00-11.30)
[2024-01-27 04:13] LABS: Bun/Creatinine Ratio 25.5 (12.0-20.0); Calcium, Blood 8.8 mg/dL (8.5-10.1); Creatinine, Blood 1.65 mg/dL (0.40-1.00); Potassium, Blood 3.8 mmol/L (3.5-5.5)
--- NOTE | 2024-01-27 04:31 | NUR ---
SHIFT SUMMARY THIS RN ASSUMED CARE AT APPROX 1915. NO ACUTE EVENTS OVERNIGHT. PATIENT SLEPT T/O - EASILY AROUSABLE WITH VERBAL STIMULI. ALERT AND ORIENTED X4. PERRLA. MOVES ALL EXTREMITIES EQUALLY WITH GENERALIZED WEAKNESS T/O. ENCOURAGING INCREASED MOBILITY WITH PARTICIPATION IN REPOSITIONING AND AMBULATING TO BS. IS [place] - COMMUNICATES NEEDS EFFECTIVELY. TELEMETRY SHOWING V PACED 60s-70s. BP STABLE, SOFT AT TIMES - SBP 90s-110s. MAP >65. DENIES CHEST PAIN, PRESSURE. ON 5L VIA HI FLOW NC T/O. DID USE CPAP WITH SLEEP. SATs >90%. X1 EPISODE WHERE PATIENT DID DESAT WITH MOBILITY REQUIRING ADDITIONAL OXYGEN TO RECOVER. NEPHROLOGY CONSULT WITH MD DIAS PLACED THIS MORNING. CALL LIGHT IN REACH. WILL CONTINUE TO MONITOR AND REPORT TO ONCOMING RN.
[2024-01-27 07:24] VITALS: BP 125/77
[2024-01-27 12:49] VITALS: BP 113/69
[2024-01-27 16:38] VITALS: BP 103/75
--- NOTE | 2024-01-27 18:41 | NUR ---
SHIFT SUMMARY; ASSUMED CARE AT 0700, A/A/0X4. MOVES SELF ON KARLAMIRNA SEWELL TO COMMODE. ENCOURAGED GETTING OUT OF BED SEVERAL TIMES DURING SHIFT. MULTIPLE TIMES STATES "I DON'T WANT TO". SAT IN RECLINER FOR DINNER. 4L 02 TO MAINTAIN SATS OF 95%. DID NOT USE CPAP DURING DAY SHIFT TODAY. ORAL CARE AND DENTURE CARE COMPLETED. VSS, WILL CONTINUE TO MONITOR AND TREAT UNTIL CHANGE OF SHIFT.
[2024-01-27] MEDS ORDERED: Torsemide 20 MG TAB PO SCH (19:00)
[2024-01-27 19:22] VITALS: BP 102/69
[2024-01-27 23:23] VITALS: BP 102/68
[2024-01-28] VITALS (7 sets, daily range): BP systolic 99–115; BP diastolic 65–84
[2024-01-28 00:26] LABS: Source, Urine Voided
[2024-01-28 00:31] LABS: Appearance, Urine Clear (Clear); Bilirubin, Urine Neg (Neg); Blood, Urine Neg (Neg); Color, Urine Yellow (P-Yellow); Glucose Qualitative, Urine Neg (Neg); Ketones, Urine Neg (Neg); Leukocyte Esterase, Urine Neg (Neg); Nitrite, Urine Neg (Neg); Protein, Urine 2+ (Neg); Urobilinogen, Urine 1+ (Normal)
[2024-01-28 00:43] LABS: Bacteria Rare /hpf; Hyaline Casts 0-2 /lpf (0-2); Red Blood Cells, Urine 0-2 /hpf (0-2); Squamous Epithelial Cells Few /hpf (Few); White Blood Cells, Urine 0-2 /hpf (0-5)
--- NOTE | 2024-01-28 04:52 | NUR ---
SHIFT SUMMARY THIS RN ASSUMED CARE AT APPROX 1915. NO ACUTE EVENTS OVERNIGHT. PATIENT SLEPT T/O, EASILY AROUSABLE WITH VERBAL STIMULI. ALERT AND ORIENTED X4. PERRLA. MOVES ALL EXTREMITIES EQUALLY WITH GENERALIZED WEAKNESS T/O. TELEMETRY SHOWING V PACED 60s. BP SOFT, SBP 90s-100s. MAP >65. DENIES CHEST PAIN, PRESSURE. ON 4L VIA NC T/O NIGHT, DID TOLERATE USE OF CPAP WHILE SLEEPING FOR MAJORITY OF THE NIGHT. UP TO BSC WITH SBA FWW. VOIDING. DECREASED MOTIVATION NOTED - ENCOURAGING PARTICIPATION IN CARE AND REPOSITIONING TO INCREASE MOBILITY TOLERANCE. CALL LIGHT IN REACH. WILL CONTINUE TO MONITOR AND REPORT TO ONCOMING RN.
[2024-01-28 05:00] LABS: BASOPHILS ABSOLUTE AUTO 0.02 K/mm3 (0.00-0.23); BASOPHILS PERCENT AUTO 0 % (0-2); EOSINOPHILS ABSOLUTE AUTO 0.06 K/mm3 (0.00-0.68); EOSINOPHILS PERCENT AUTO 1 % (0-6); Hematocrit 27.4 % (33.0-51.0); Hemoglobin 7.9 g/dL (11.5-16.0); IMMATURE GRAN ABSOLUTE AUTO 0.03 K/mm3 (0.00-0.10); IMMATURE GRAN PERCENT AUTO 1 % (0-1); LYMPHOCYTES ABSOLUTE AUTO 1.09 K/mm3 (0.84-5.20); LYMPHOCYTES PERCENT AUTO 20 % (21-46); MONOCYTES ABSOLUTE AUTO 0.39 K/mm3 (0.16-1.47); MONOCYTES PERCENT AUTO 7 % (4-13); Mean Corpuscular HGB 20.5 pg (26.0-34.0); Mean Corpuscular HGB Conc 28.8 g/dL (31.5-36.5); Mean Corpuscular Volume 71 fL (80-100); Mean Platelet Volume 10.1 fL (9.1-12.4); NEUTROPHILS ABSOLUTE AUTO 3.88 K/mm3 (1.96-9.15); NEUTROPHILS PERCENT AUTO 71 % (41-73); NRBC ABSOLUTE 0.11 K/mm3 (0.00-0.02); Platelet Count 55 K/mm3 (150-400); RDW Coefficient Variation 19.2 % (11.7-14.2); RDW Standard Deviation 47.9 fL (35.1-46.3); Red Blood Cell Count 3.85 M/mm3 (3.80-5.20); White Blood Cell Count 5.47 K/mm3 (4.00-11.30)
[2024-01-28 05:17] LABS: Albumin, Blood 2.6 g/dL (3.4-5.0); Albumin/Globulin Ratio 0.9 (0.8-1.8); Bilirubin, Total 1.1 mg/dL (0.1-1.0); Bun/Creatinine Ratio 25.5 (12.0-20.0); Calcium, Blood 8.1 mg/dL (8.5-10.1); Creatinine, Blood 1.41 mg/dL (0.40-1.00); Percent Saturation 4.5 % (15.0-50.0); Potassium, Blood 3.3 mmol/L (3.5-5.5); Total Protein, Blood 5.6 g/dL (6.4-8.2)
[2024-01-28] MEDS ORDERED: Potassium Chloride 10 Meq Tablet SA PO ONE (08:00)
[2024-01-28] MEDS ORDERED: Doxycycline Hyclate 100 MG TAB PO SCH (09:00)
[2024-01-28] MEDS ORDERED: Metolazone 2.5 MG Tab PO SCH (09:00)
[2024-01-28] MEDS ORDERED: Torsemide 20 MG TAB PO SCH (09:00)
[2024-01-28] MEDS ORDERED: Midodrine 5 MG Tab PO SCH (09:00)
[2024-01-28 16:51] LABS: Calcium, Blood 8.4 mg/dL (8.5-10.1); Creatinine, Blood 1.61 mg/dL (0.40-1.00); Potassium, Blood 3.8 mmol/L (3.5-5.5)
--- NOTE | 2024-01-28 18:57 | NUR ---
ASSUMED CARE OF PT AT 0700 THIS AM. NO ACUTE CHANGES T/O THE SHIFT. VSS, SEE DOCUMENTED ASSESSMENT. PT DID C/O FEELING NAUSEATED AFTER EATING "LIKE SOMETHING IS STUCK WHENEVER I EAT." PT STATES THE FEELING PASSES A LITTLE WHILE AFTER EATING. PT WORKED WITH PHYSICAL THERAPY. PER POWER DISTRIBUTOR HEBER, PT IS ACCEPTED AT FOR REHAB PLACEMENT, AWAITING INSURANCE [employer]. PT IS ABLE TO COMMUNICATE HER NEEDS AND USE CALL LIGHT APPROPRIATELY. NO FURTHER CONCERNS AT THIS TIME. REPORT GIVEN TO MELINDA LOWRY, FOR NOC SHIFT.
[2024-01-29 03:21] VITALS: BP 102/68
[2024-01-29 03:36] LABS: BASOPHILS ABSOLUTE AUTO 0.01 K/mm3 (0.00-0.23); BASOPHILS PERCENT AUTO 0 % (0-2); EOSINOPHILS PERCENT AUTO 2 % (0-6); Hematocrit 29.4 % (33.0-51.0); Hemoglobin 8.5 g/dL (11.5-16.0); IMMATURE GRAN ABSOLUTE AUTO 0.03 K/mm3 (0.00-0.10); IMMATURE GRAN PERCENT AUTO 1 % (0-1); LYMPHOCYTES ABSOLUTE AUTO 1.18 K/mm3 (0.84-5.20); LYMPHOCYTES PERCENT AUTO 20 % (21-46); MONOCYTES ABSOLUTE AUTO 0.46 K/mm3 (0.16-1.47); MONOCYTES PERCENT AUTO 8 % (4-13); Mean Corpuscular HGB 20.3 pg (26.0-34.0); Mean Corpuscular HGB Conc 28.9 g/dL (31.5-36.5); Mean Corpuscular Volume 70 fL (80-100); Mean Platelet Volume 9.9 fL (9.1-12.4); NEUTROPHILS ABSOLUTE AUTO 4.11 K/mm3 (1.96-9.15); NEUTROPHILS PERCENT AUTO 70 % (41-73); NRBC ABSOLUTE 0.12 K/mm3 (0.00-0.02); Platelet Count 59 K/mm3 (150-400); RDW Coefficient Variation 19.4 % (11.7-14.2); RDW Standard Deviation 47.8 fL (35.1-46.3); Red Blood Cell Count 4.18 M/mm3 (3.80-5.20); White Blood Cell Count 5.89 K/mm3 (4.00-11.30)
[2024-01-29 03:56] LABS: Albumin/Globulin Ratio 0.9 (0.8-1.8); Bilirubin, Total 1.3 mg/dL (0.1-1.0); Bun/Creatinine Ratio 26.7 (12.0-20.0); Creatinine, Blood 1.46 mg/dL (0.40-1.00); Globulin, Blood 3.3 g/dL (2.2-4.0); Potassium, Blood 3.4 mmol/L (3.5-5.5); Total Protein, Blood 6.3 g/dL (6.4-8.2); Uric Acid, Blood 16.1 mg/dL (2.6-6.0)
--- NOTE | 2024-01-29 04:54 | NUR ---
SHIFT SUMMARY A&Ox4, CALLS AND COMMUNICATES NEEDS APPROPRIATELY. BP STABLE, V PACED AT 70's, DENIES CP/PRESSURE. SpO2> 92% 4L VIA NC, DENIES SOB. CONTINENT OF URINE, SBA TO BSC. NO C/O PAIN. PT RESTED COMFORTABLY THROUGHOUT NIGHT. NO OTHER EVENTS, WILL REPORT TO ONCOMING RN.
[2024-01-29] MEDS ORDERED: Potassium Chloride 10 Meq Tablet SA PO ONE (07:00)
[2024-01-29] MEDS ORDERED: Doxycycline Hyclate 100 MG TAB PO SCH (09:00)
[2024-01-29] MEDS ORDERED: Sod Ferric Gluc Complx/Sucrose 125 MG in NS 100 ML IV SCH (09:00)
[2024-01-29] MEDS ORDERED: Potassium Chloride 20 MEQ TabCR PO ONE (09:30)
[2024-01-29 09:39] VITALS: BP 107/74
[2024-01-29 12:47] VITALS: BP 103/71
[2024-01-29 16:16] VITALS: BP 90/60
--- NOTE | 2024-01-29 18:45 | NUR ---
ASSUMED CARE OF PT AT 0700 THIS AM. NO ACUTE CHANGES OR CONCERNS T/O THE SHIFT. PT WORKED WITH SPEACH THERAPY, SEE ORDERS. SEE DOCUMENTED VS AND ASSESSMENT. PT GIVEN MIRALAX AND SENNA WITH AM MEDICATIONS FOR BOWEL CARE. PT HAS HAD NO COMPLAINTS T/O THE SHIFT. PT ABLE TO USE CALL LIGHT FOR NEEDS AND COMMUNICATE APPROPRIATELY. CALL LIGHT IN REACH, WILL CONTINUE TO MONITOR AND GIVE REPORT TO NOC SHIFT RN.
[2024-01-29 19:30] VITALS: BP 97/70
[2024-01-29 23:20] VITALS: BP 116/79
--- NOTE | 2024-01-29 23:42 | NUR ---
WHEN ASSESSING THE PATIENT AT START OF SHIFT SHE POINTED OUT A CUP OF MEDICATIONS THAT SHE WAS SUPPOSED TO TAKE EARLIER BUT HAD NOT. IDENTIFIED EACH PILL AND CALLED THE HOSPITALIST, ORDERS TO GIVE MISSED PILLS. PULLED NEW PILLS FROM [employer] AND GAVE THEM PER ORDERS.
[2024-01-30 03:50] VITALS: BP 106/76
[2024-01-30 04:04] LABS: BASOPHILS ABSOLUTE AUTO 0.03 K/mm3 (0.00-0.23); BASOPHILS PERCENT AUTO 1 % (0-2); EOSINOPHILS ABSOLUTE AUTO 0.06 K/mm3 (0.00-0.68); EOSINOPHILS PERCENT AUTO 1 % (0-6); Hematocrit 32.2 % (33.0-51.0); Hemoglobin 9.6 g/dL (11.5-16.0); IMMATURE GRAN ABSOLUTE AUTO 0.02 K/mm3 (0.00-0.10); IMMATURE GRAN PERCENT AUTO 0 % (0-1); LYMPHOCYTES ABSOLUTE AUTO 1.23 K/mm3 (0.84-5.20); LYMPHOCYTES PERCENT AUTO 19 % (21-46); MONOCYTES ABSOLUTE AUTO 0.47 K/mm3 (0.16-1.47); MONOCYTES PERCENT AUTO 7 % (4-13); Mean Corpuscular HGB 20.6 pg (26.0-34.0); Mean Corpuscular HGB Conc 29.8 g/dL (31.5-36.5); Mean Corpuscular Volume 69 fL (80-100); Mean Platelet Volume 10.2 fL (9.1-12.4); NEUTROPHILS ABSOLUTE AUTO 4.66 K/mm3 (1.96-9.15); NEUTROPHILS PERCENT AUTO 72 % (41-73); NRBC Auto 1.5 /100 WBC (0.0-0.2); Platelet Count 56 K/mm3 (150-400); RDW Coefficient Variation 19.7 % (11.7-14.2); RDW Standard Deviation 46.6 fL (35.1-46.3); Red Blood Cell Count 4.65 M/mm3 (3.80-5.20); White Blood Cell Count 6.47 K/mm3 (4.00-11.30)
[2024-01-30 04:24] LABS: Albumin, Blood 3.1 g/dL (3.4-5.0); Albumin/Globulin Ratio 0.9 (0.8-1.8); Bilirubin, Total 1.3 mg/dL (0.1-1.0); Bun/Creatinine Ratio 25.7 (12.0-20.0); Calcium, Blood 9.3 mg/dL (8.5-10.1); Creatinine, Blood 1.48 mg/dL (0.40-1.00); Globulin, Blood 3.3 g/dL (2.2-4.0); Potassium, Blood 2.8 mmol/L (3.5-5.5); Total Protein, Blood 6.4 g/dL (6.4-8.2)
--- NOTE | 2024-01-30 04:49 | NUR ---
SHIFT SUMMARY PATIENT IS ALERT AND ORIENTED X4. SP02 96% ON 4L VIA NC, WORE CPAP WHILE SLEEPING. SOB WITH ACTIVITY. HR PACED 60s-70s, BP STABLE, DENIES CP/PRESSURE. SOME EDEMA IN BLE. PATIENT URINATING FREQUENTLY THROUGH THE NIGHT, UP TO BEDSIDE COMMODE WITH SBA. MULTIPLE SMALL BROWN BMs THIS SHIFT. DENIES PAIN. CALL LIGHT IN REACH
[2024-01-30 05:47] LABS: Magnesium, Blood 1.6 mg/dL (1.6-2.4)
[2024-01-30] MEDS ORDERED: Potassium Chloride 20 MEQ TabCR PO SCH (06:00)
[2024-01-30] MEDS ORDERED: Mag Sulfate 1 GM/D5% 100ML 100 ML IV STA (07:49)
[2024-01-30] MEDS ORDERED: Potassium Chloride 40 MEQ in NS 250 ML IV ONE (07:50)
[2024-01-30 07:59] VITALS: BP 91/80
[2024-01-30 08:49] VITALS: BP 96/62
[2024-01-30] MEDS ORDERED: Allopurinol 100 MG Tab PO SCH (09:00)
[2024-01-30] MEDS ORDERED: TORSE20 PO (10:52)
[2024-01-30] MEDS ORDERED: FERROUS GLUCON324 M2 PO (10:55)
[2024-01-30] MEDS ORDERED: MIRALAX17 GM PO (10:56)
[2024-01-30] MEDS ORDERED: ALLO100 PO (10:56)
[2024-01-30] MEDS ORDERED: DOCUZEN 8.6-501 EACH PO (10:57)
[2024-01-30] MEDS ORDERED: MIDO5 PO (10:58)
[2024-01-30 12:24] VITALS: BP 94/58
--- NOTE | 2024-01-30 14:37 | NUR ---
DISCHARGE: PT HAS BEEN CLEARED FOR DISCHARGE TO SNF. ALL IV ACCESS DC'd WNL. PT ASSISTED W/DRESSING. FAMILY UPDATED. REPORT CALLED TO UVNR. PT AWAITING TRANSPORT TO FACILITY.
== END 2024-01-30 15:04 | DRG 291 ==
LOC: ER 10:29 → MEDS 10:30 → PCU 01-21 11:39 → MEDS 01-21 11:39 → PCU 01-24 17:04
PROVIDERS: Emergency Medicine; Family Medicine; Family Medicine Adult Medicine; Hospitalist; Student in an Organized Health Care Education/Training Program; ADMIT Hospitalist
PROC: 5A09357 Assistance with Respiratory Ventilation, Less than 24 Consecutive Hours, Continuous Positive Airway Pressure (ICD-10-PCS; principal; 2024-01-21)
DX: I13.0 Hypertensive heart and chronic kidney disease with heart failure and stage 1 through stage 4 chronic kidney disease, or unspecified chronic kidney disease (principal); I50.43 Acute on chronic combined systolic (congestive) and diastolic (congestive) heart failure; J18.9 Pneumonia, unspecified organism; J96.01 Acute respiratory failure with hypoxia; N17.9 Acute kidney failure, unspecified; I48.20 Chronic atrial fibrillation, unspecified; K59.00 Constipation, unspecified; F10.90 Alcohol use, unspecified, uncomplicated; E87.6 Hypokalemia; R74.01 Elevation of levels of liver transaminase levels; N18.32 Chronic kidney disease, stage 3b; D50.9 Iron deficiency anemia, unspecified; K21.9 Gastro-esophageal reflux disease without esophagitis; E83.42 Hypomagnesemia; D63.1 Anemia in chronic kidney disease; R94.31 Abnormal electrocardiogram [ECG] [EKG]; K76.1 Chronic passive congestion of liver; Z79.01 Long term (current) use of anticoagulants; Z95.2 Presence of prosthetic heart valve; Z98.890 Other specified postprocedural states; Z88.8 Allergy status to other drugs, medicaments and biological substances; Z87.891 Personal history of nicotine dependence; Z95.0 Presence of cardiac pacemaker; Z79.899 Other long term (current) drug therapy; Z99.81 Dependence on supplemental oxygen
CPT/HCPCS: 0241U; 36415; 71045; 71046; 76705; 80048; 80053; 80069; 81001; 82533; 82947; 83540; 83550; 83605; 83735; 83880; 84145; 84484; 84550; 85025; 87040; 92610; 93005; 93010; 93306; 94660; 94762; 96374; 97110; 97162; 97530; 99285-25; A9270; G0378; J0696; J1940; J2916; J3475; J3480; J7050; J7120

== ENCOUNTER 2024-02-24 15:23 | Emergency (ER) | payer OTHER ==
[~2024-02-24] VITALS: Ht 160 cm; Wt 64.9 kg
[~2024-02-24 15:23] MED LIST changes: +ALLO100 PO; +BUPR100ER PO; +DOCUZEN 8.6-501 EACH PO; +FERROUS GLUCON324 M2 PO; +FLUO10 PO; +MIDO5 PO; +MIRALAX17 GM PO
[2024-02-24 19:28] LABS: BASOPHILS ABSOLUTE AUTO 0.06 K/mm3 (0.00-0.23); BASOPHILS PERCENT AUTO 1 % (0-2); EOSINOPHILS ABSOLUTE AUTO 0.11 K/mm3 (0.00-0.68); EOSINOPHILS PERCENT AUTO 1 % (0-6); Hematocrit 38.7 % (33.0-51.0); Hemoglobin 11.2 g/dL (11.5-16.0); IMMATURE GRAN ABSOLUTE AUTO 0.05 K/mm3 (0.00-0.10); IMMATURE GRAN PERCENT AUTO 1 % (0-1); LYMPHOCYTES ABSOLUTE AUTO 1.86 K/mm3 (0.84-5.20); LYMPHOCYTES PERCENT AUTO 22 % (21-46); MONOCYTES ABSOLUTE AUTO 0.31 K/mm3 (0.16-1.47); MONOCYTES PERCENT AUTO 4 % (4-13); Mean Corpuscular HGB 24.3 pg (26.0-34.0); Mean Corpuscular HGB Conc 28.9 g/dL (31.5-36.5); Mean Corpuscular Volume 84 fL (80-100); Mean Platelet Volume 9.8 fL (9.1-12.4); NEUTROPHILS ABSOLUTE AUTO 6.27 K/mm3 (1.96-9.15); NEUTROPHILS PERCENT AUTO 72 % (41-73); Platelet Count 166 K/mm3 (150-400); RDW Coefficient Variation 31.3 % (11.7-14.2); RDW Standard Deviation 88.4 fL (35.1-46.3); Red Blood Cell Count 4.61 M/mm3 (3.80-5.20); White Blood Cell Count 8.66 K/mm3 (4.00-11.30)
[2024-02-24 19:52] LABS: Albumin/Globulin Ratio 0.7 (0.8-1.8); Bilirubin, Total 0.6 mg/dL (0.1-1.0); Bun/Creatinine Ratio 16.7 (12.0-20.0); Calcium, Blood 8.8 mg/dL (8.5-10.1); Creatinine, Blood 1.26 mg/dL (0.40-1.00); Globulin, Blood 4.6 g/dL (2.2-4.0); Potassium, Blood 4.4 mmol/L (3.5-5.5); Total Protein, Blood 7.6 g/dL (6.4-8.2)
[2024-02-24] MEDS ORDERED: Furosemide 10 MG/ML 4ML Vial IV ONE (20:45)
[2024-02-24 21:10] VITALS: BP 138/68
== END 2024-02-24 21:17 | disposition home or self-care (01) ==
LOC: ER 15:23
PROVIDERS: Physician Assistant
DX: I50.30 Unspecified diastolic (congestive) heart failure (principal); I48.91 Unspecified atrial fibrillation; K21.9 Gastro-esophageal reflux disease without esophagitis; Z79.01 Long term (current) use of anticoagulants; Z79.899 Other long term (current) drug therapy; Z88.6 Allergy status to analgesic agent; Z91.011 Allergy to milk products; Z87.891 Personal history of nicotine dependence
CPT/HCPCS: 71046; 80053; 83880; 84484; 85025; 93005; 93010; 99285-25

== ENCOUNTER → 2024-07-22 | Outpatient (CLI) | payer OTHER ==
[2024-07-22 20:34] LABS: Bacterial Vaginosis PCR Negative (NEGATIVE); Candida Group, PCR NOT DETECTED (NOT DETECT); Candida glabrata-krusei, PCR NOT DETECTED (NOT DETECT)
== END ==
LOC: LAB SHORT 16:44 → LAB 16:44
PROVIDERS: Emergency Medicine
DX: N89.8 Other specified noninflammatory disorders of vagina (principal)
CPT/HCPCS: 87481; 87661; 87801

== ENCOUNTER → 2024-10-12 | Outpatient (CLI) | payer OTHER ==
[2024-10-12 12:30] LABS: Albumin, Blood 3.3 g/dL (3.4-5.0); Albumin/Globulin Ratio 0.8 (0.8-1.8); BASOPHILS ABSOLUTE AUTO 0.08 K/mm3 (0.00-0.23); BASOPHILS PERCENT AUTO 1 % (0-2); Bilirubin, Total 0.5 mg/dL (0.1-1.0); Bun/Creatinine Ratio 12.5 (12.0-20.0); Calcium, Blood 9.1 mg/dL (8.5-10.1); Creatinine, Blood 1.44 mg/dL (0.40-1.00); EOSINOPHILS ABSOLUTE AUTO 0.12 K/mm3 (0.00-0.68); EOSINOPHILS PERCENT AUTO 2 % (0-6); Globulin, Blood 4.1 g/dL (2.2-4.0); Hematocrit 44.9 % (33.0-51.0); Hemoglobin 14.6 g/dL (11.5-16.0); IMMATURE GRAN ABSOLUTE AUTO 0.03 K/mm3 (0.00-0.10); IMMATURE GRAN PERCENT AUTO 0 % (0-1); LYMPHOCYTES ABSOLUTE AUTO 1.93 K/mm3 (0.84-5.20); LYMPHOCYTES PERCENT AUTO 27 % (21-46); MONOCYTES ABSOLUTE AUTO 0.39 K/mm3 (0.16-1.47); MONOCYTES PERCENT AUTO 5 % (4-13); Mean Corpuscular HGB 29.3 pg (26.0-34.0); Mean Corpuscular HGB Conc 32.5 g/dL (31.5-36.5); Mean Corpuscular Volume 90 fL (80-100); NEUTROPHILS ABSOLUTE AUTO 4.63 K/mm3 (1.96-9.15); NEUTROPHILS PERCENT AUTO 65 % (41-73); Potassium, Blood 4.3 mmol/L (3.5-5.5); Red Blood Cell Count 4.98 M/mm3 (3.80-5.20); Total Protein, Blood 7.4 g/dL (6.4-8.2); White Blood Cell Count 7.18 K/mm3 (4.00-11.30)
[2024-10-12 12:38] LABS: Mean Platelet Volume 10.6 fL (9.1-12.4); Platelet Count 106 K/mm3 (150-400)
== END ==
LOC: LAB 12:10 → LAB SHORT 12:10
PROVIDERS: Physician Assistant
DX: R10.9 Unspecified abdominal pain (principal)
CPT/HCPCS: 80053; 83690; 85025; 85379

== ENCOUNTER 2025-01-27 17:20 | Inpatient (IN) | payer OTHER ==
[~2025-01-27] VITALS: Ht 160 cm; Wt 65.7 kg
[2025-01-27] MEDS ORDERED: Propofol 10mg/ml 20 ml Vial (Procedural) IV ONE (17:35)
[2025-01-27] MEDS ORDERED: Etomidate 2MG / ML 10ML Vial IV ONE (17:35)
[2025-01-27 18:14] LABS: BASOPHILS ABSOLUTE AUTO 0.06 K/mm3 (0.00-0.23); BASOPHILS PERCENT AUTO 1 % (0-2); EOSINOPHILS ABSOLUTE AUTO 0.06 K/mm3 (0.00-0.68); EOSINOPHILS PERCENT AUTO 1 % (0-6); Hematocrit 43.4 % (33.0-51.0); Hemoglobin 13.3 g/dL (11.5-16.0); IMMATURE GRAN ABSOLUTE AUTO 0.03 K/mm3 (0.00-0.10); IMMATURE GRAN PERCENT AUTO 0 % (0-1); LYMPHOCYTES ABSOLUTE AUTO 1.69 K/mm3 (0.84-5.20); LYMPHOCYTES PERCENT AUTO 23 % (21-46); MONOCYTES ABSOLUTE AUTO 0.31 K/mm3 (0.16-1.47); MONOCYTES PERCENT AUTO 4 % (4-13); Mean Corpuscular HGB 30.4 pg (26.0-34.0); Mean Corpuscular HGB Conc 30.6 g/dL (31.5-36.5); Mean Corpuscular Volume 99 fL (80-100); Mean Platelet Volume 10.2 fL (9.1-12.4); NEUTROPHILS ABSOLUTE AUTO 5.18 K/mm3 (1.96-9.15); NEUTROPHILS PERCENT AUTO 71 % (41-73); NRBC ABSOLUTE 0.02 K/mm3 (0.00-0.02); NRBC Auto 0.3 /100 WBC (0.0-0.2); Platelet Count 83 K/mm3 (150-400); RDW Coefficient Variation 16.9 % (11.7-14.2); RDW Standard Deviation 60.7 fL (35.1-46.3); Red Blood Cell Count 4.38 M/mm3 (3.80-5.20); White Blood Cell Count 7.33 K/mm3 (4.00-11.30)
[2025-01-27 18:32] LABS: Albumin, Blood 3.5 g/dL (3.4-5.0); Albumin/Globulin Ratio 0.9 (0.8-1.8); Bilirubin, Total 0.9 mg/dL (0.1-1.0); Bun/Creatinine Ratio 14.8 (12.0-20.0); Calcium, Blood 9.2 mg/dL (8.5-10.1); Creatinine, Blood 1.55 mg/dL (0.40-1.00); Globulin, Blood 3.9 g/dL (2.2-4.0); Potassium, Blood 4.8 mmol/L (3.5-5.5); Total Protein, Blood 7.4 g/dL (6.4-8.2)
[2025-01-27] MEDS ORDERED: Ondansetron HCl 2 MG / ML 2ML Vial IV PRN (20:15)
[2025-01-27] MEDS ORDERED: Acetaminophen 325 MG TABLET PO PRN (20:20)
[2025-01-27 20:55] LABS: Base Excess Venous -5.6 mmol/L; Bicarbonate Venous 19.8 mmol/L (24.0-30.0); PCO2 Venous 40.9 mmHg (38-42); pH Blood Venous 7.31 (7.34-7.37)
[2025-01-27] MEDS ORDERED: DILT60ER PO (20:59)
[2025-01-27] MEDS ORDERED: Lactobacil 2-S.Thermo-Bifido 1 1 Cap PO SCH (21:00)
[2025-01-27] MEDS ORDERED: PROPAFENONE HC225 MG PO (21:26)
[2025-01-27 22:32] VITALS: BP 138/89
--- NOTE | 2025-01-27 22:50 | NUR ---
ADMIT NOTE HANDOFF RECEIVED FROM RECORDINGS LIBRARIAN MEÑO. PT ARRIVED TO FLOOR VIA GURNEY. PT ORIENTED TO UNIT. CALL BUTTON WITHIN REACH. PERSONAL POSSESSIONS WITH PT. AWAITING DELIVERY OF MARKETING EFFECTIVENESS MANAGER. BED ALARM IS ACTIVE.
[2025-01-27] MEDS ORDERED: Albuterol HFA200 ACT/6.7 GM INH INH PRN (23:40)
[2025-01-28 00:19] VITALS: BP 101/90
[2025-01-28] MEDS ORDERED: Polyethylene Glycol 3350 17 gm PO PRN (01:10)
[2025-01-28] MEDS ORDERED: Albuterol 2.5 MG/3 ML VIAL INH PRN (01:15)
[2025-01-28] MEDS ORDERED: Docusate Sodium/Senna 1 Tab PO PRN (01:55)
[2025-01-28 02:39] VITALS: BP 119/91
--- NOTE | 2025-01-28 04:05 | NUR ---
SHIFT SUMMARY ADMITTED THIS SHIFT FOR RESPIRATORY FAILURE. FULL CODE. PLAN IS FOR ECHO TODAY AND DIURESING. STRICT I&O'S AND DAILY WEIGHTS, RT TREATMENTS. TELEMETRY: NSR @ 90 BPM W/BBB. SHE DOES HAVE A PACEMAKER. DYSPNEA WITH EXERTION, 3 LPM O2 IS BASELINE. SHE IS A&O X4. STANDBY ASSIST. CARDIAC DIET.
[2025-01-28] MEDS ORDERED: Pantoprazole Sodium 40 MG Tab PO SCH (06:00)
[2025-01-28 07:19] VITALS: BP 111/91
[2025-01-28] MEDS ORDERED: Ferrous Gluconate 325 MG Tablet PO SCH (08:00)
[2025-01-28] MEDS ORDERED: Potassium Chloride 10 Meq Tablet SA PO SCH (08:00)
[2025-01-28 08:44] LABS: BASOPHILS PERCENT AUTO 0 % (0-2); EOSINOPHILS PERCENT AUTO 0 % (0-6); Hematocrit 40.9 % (33.0-51.0); Hemoglobin 12.8 g/dL (11.5-16.0); IMMATURE GRAN ABSOLUTE AUTO 0.02 K/mm3 (0.00-0.10); IMMATURE GRAN PERCENT AUTO 0 % (0-1); LYMPHOCYTES ABSOLUTE AUTO 0.86 K/mm3 (0.84-5.20); LYMPHOCYTES PERCENT AUTO 18 % (21-46); MONOCYTES PERCENT AUTO 2 % (4-13); Mean Corpuscular HGB 30.5 pg (26.0-34.0); Mean Corpuscular HGB Conc 31.3 g/dL (31.5-36.5); Mean Corpuscular Volume 98 fL (80-100); Mean Platelet Volume 10.9 fL (9.1-12.4); NEUTROPHILS ABSOLUTE AUTO 3.77 K/mm3 (1.96-9.15); NEUTROPHILS PERCENT AUTO 79 % (41-73); Platelet Count 72 K/mm3 (150-400); RDW Coefficient Variation 17.1 % (11.7-14.2); RDW Standard Deviation 58.5 fL (35.1-46.3); Red Blood Cell Count 4.19 M/mm3 (3.80-5.20); White Blood Cell Count 4.75 K/mm3 (4.00-11.30)
[2025-01-28] MEDS ORDERED: Torsemide 20 MG TAB PO SCH (09:00)
[2025-01-28] MEDS ORDERED: Midodrine 5 MG Tab PO SCH (09:00)
[2025-01-28] MEDS ORDERED: Misc. Capsule PO SCH (09:00)
[2025-01-28] MEDS ORDERED: Furosemide 10 MG/ML 4ML Vial IV SCH (09:00)
[2025-01-28] MEDS ORDERED: Allopurinol 100 MG Tab PO SCH (09:00)
[2025-01-28 09:05] LABS: Albumin, Blood 3.3 g/dL (3.4-5.0); Albumin/Globulin Ratio 0.8 (0.8-1.8); Bilirubin, Total 0.8 mg/dL (0.1-1.0); Calcium, Blood 9.2 mg/dL (8.5-10.1); Creatinine, Blood 1.61 mg/dL (0.40-1.00); Globulin, Blood 3.9 g/dL (2.2-4.0); Potassium, Blood 4.7 mmol/L (3.5-5.5); Total Protein, Blood 7.2 g/dL (6.4-8.2)
--- NOTE | 2025-01-28 14:08 | NUR ---
PRIVACY ATTORNEY CALLED THIS AFTERNOON TO REPORT ST CHANGES, DR. WORKMAN NOTIFIED AND ORDERED EKG, DR. WORKMAN CAME UP TO REVIEW EKG AND REPORTS NOT MUCH OF A CHANGE FROM YESTERDAYS EKG. NO NEW INTERVENTIONS AT THIS TIME. PT IS NOT SYMPTOMATIC, DENIES CHEST PAIN.
[2025-01-28 16:22] VITALS: BP 114/80
[2025-01-28] MEDS ORDERED: Rivaroxaban 10 MG Tab PO SCH (18:00)
--- NOTE | 2025-01-28 18:16 | NUR ---
SUMMARY PT REQUIRING 3L NC TO MAINTAIN SATS GRETER THAN 92%. PT SOB AT REST AND WITH EXERTION. STAND-BY ASSIST TO BATHROOM. STRICT I&O'S, DAILY WEIGHT, 1800 ML RESTRICTION BUT IS NOT NEAR TOTAL. WILL ATTEMPT TO WEAN O2. NORMALLY DOES NOT REQUIRE ANY AT HOME, BUT DOES HAVE O2 AVAILABLE PRN AT HOME, HAS BEEN REQUIRING IT CONSTANTLY AT HOME THE PAST WEEK. IV DIURETICS ADMINISTERED ORDERED. PT REFUSED MIDODRINE TODAY, STATES SHE HAS NOT BEEN TAKING THIS AT HOME FOR SOME TIME. PT ALSO REPORTS SIMILAR WTIH ALLOPURINOL. ABLE TO MAKE NEEDS KNOWN. CALLS APPROPRIATELY.
[2025-01-28 19:44] VITALS: BP 93/69
[2025-01-28 23:29] VITALS: BP 151/66
[2025-01-29] VITALS (8 sets, daily range): BP systolic 90–110; BP diastolic 56–87
[2025-01-29 05:22] LABS: BASOPHILS ABSOLUTE AUTO 0.01 K/mm3 (0.00-0.23); BASOPHILS PERCENT AUTO 0 % (0-2); EOSINOPHILS PERCENT AUTO 0 % (0-6); Hematocrit 39.1 % (33.0-51.0); Hemoglobin 12.4 g/dL (11.5-16.0); IMMATURE GRAN ABSOLUTE AUTO 0.04 K/mm3 (0.00-0.10); IMMATURE GRAN PERCENT AUTO 1 % (0-1); LYMPHOCYTES ABSOLUTE AUTO 1.29 K/mm3 (0.84-5.20); LYMPHOCYTES PERCENT AUTO 15 % (21-46); MONOCYTES ABSOLUTE AUTO 0.47 K/mm3 (0.16-1.47); MONOCYTES PERCENT AUTO 6 % (4-13); Mean Corpuscular HGB 30.5 pg (26.0-34.0); Mean Corpuscular HGB Conc 31.7 g/dL (31.5-36.5); Mean Corpuscular Volume 96 fL (80-100); Mean Platelet Volume 10.6 fL (9.1-12.4); NEUTROPHILS ABSOLUTE AUTO 6.64 K/mm3 (1.96-9.15); NEUTROPHILS PERCENT AUTO 79 % (41-73); NRBC ABSOLUTE 0.02 K/mm3 (0.00-0.02); NRBC Auto 0.2 /100 WBC (0.0-0.2); Platelet Count 71 K/mm3 (150-400); RDW Coefficient Variation 17.4 % (11.7-14.2); RDW Standard Deviation 58.5 fL (35.1-46.3); Red Blood Cell Count 4.07 M/mm3 (3.80-5.20); White Blood Cell Count 8.45 K/mm3 (4.00-11.30)
--- NOTE | 2025-01-29 05:49 | NUR ---
SHIFT SUMMARY A&OX4, VSS ON 3LPM. CONTINUOUS PULSE OX IN PLACE. STRICT I/Os WITH 1800 ML FLUID RESTRICTION. PT REPORTS CONTINUED SOB WITH EXERTION. UP WITH STANDBY ASSIST.
[2025-01-29 05:52] LABS: Albumin, Blood 3.3 g/dL (3.4-5.0); Albumin/Globulin Ratio 0.9 (0.8-1.8); Bilirubin, Total 0.9 mg/dL (0.1-1.0); Bun/Creatinine Ratio 20.7 (12.0-20.0); Creatinine, Blood 1.98 mg/dL (0.40-1.00); Globulin, Blood 3.5 g/dL (2.2-4.0); Total Protein, Blood 6.8 g/dL (6.4-8.2)
[2025-01-29] MEDS ORDERED: Midodrine 5 MG Tab PO SCH (09:00)
[2025-01-29] MEDS ORDERED: Metoprolol Succinate 25 MG TABCR PO SCH (13:00)
--- NOTE | 2025-01-29 15:47 | NUR ---
SUMMARY PATIENT WEANED FROM 3 TO 2L NASAL CANNULA. SHORTNESS OF BREATH HAS IMPROVED SINCE YESTERDAY. MANAGER [employer] CALLED THIS AFTERNOONTO REPORT MORPHOLOGY CHANGES, COULNT BE MORE SPECIFIC. NOTIFIED DR. SINGH WHO ORDERED AN EKG. EKG COMPLETED AND PLACED ON FRONT ON CHART FOR DR. SINGH TO REVIEW. PT DENIES ANY CHEST PAIN/DISCOMFORT. LASIX DOSE WAS DECREASED TODAY. DR. SINGH ADDED METOPROLOL WITH PARAMETER TO MANAGE TACHYCARDIA. PT UP TO BATHROM STAND-BY ASSIST. ABLE TO MAKE NEEDS KNOWN.
[2025-01-29] MEDS ORDERED: Nystatin 100,000 Unit/ML Susp 5 ML UDC SS SCH (17:00)
[2025-01-30 02:51] VITALS: BP 101/79
[2025-01-30 04:52] LABS: BASOPHILS ABSOLUTE AUTO 0.05 K/mm3 (0.00-0.23); BASOPHILS PERCENT AUTO 1 % (0-2); EOSINOPHILS ABSOLUTE AUTO 0.06 K/mm3 (0.00-0.68); EOSINOPHILS PERCENT AUTO 1 % (0-6); Hematocrit 39.5 % (33.0-51.0); Hemoglobin 12.4 g/dL (11.5-16.0); IMMATURE GRAN ABSOLUTE AUTO 0.05 K/mm3 (0.00-0.10); IMMATURE GRAN PERCENT AUTO 1 % (0-1); LYMPHOCYTES ABSOLUTE AUTO 1.64 K/mm3 (0.84-5.20); LYMPHOCYTES PERCENT AUTO 26 % (21-46); MONOCYTES ABSOLUTE AUTO 0.42 K/mm3 (0.16-1.47); MONOCYTES PERCENT AUTO 7 % (4-13); Mean Corpuscular HGB 30.5 pg (26.0-34.0); Mean Corpuscular HGB Conc 31.4 g/dL (31.5-36.5); Mean Corpuscular Volume 97 fL (80-100); Mean Platelet Volume 10.3 fL (9.1-12.4); NEUTROPHILS ABSOLUTE AUTO 4.08 K/mm3 (1.96-9.15); NEUTROPHILS PERCENT AUTO 65 % (41-73); NRBC ABSOLUTE 0.02 K/mm3 (0.00-0.02); NRBC Auto 0.3 /100 WBC (0.0-0.2); Platelet Count 63 K/mm3 (150-400); RDW Coefficient Variation 17.7 % (11.7-14.2); RDW Standard Deviation 60.2 fL (35.1-46.3); Red Blood Cell Count 4.07 M/mm3 (3.80-5.20)
--- NOTE | 2025-01-30 05:08 | NUR ---
SHIFT SUMMARY TELE IN PLACE, ST RHYTHM THROUGHOUT SHIFT, HR 104-110. OTHER VSS ON 2LPM. PT REPORTS NAUSEA, PRN ZOFRAN EFFECTIVE. UP WITH STANDBY ASSIST. PT REPORTS EARLY FULLNESS AT MEALS/DECREASED APPETITE.
[2025-01-30 05:10] LABS: Albumin, Blood 3.2 g/dL (3.4-5.0); Anion Gap 13 mmol/L (3-11); Blood Urea Nitrogen 45 mg/dL (8-24); Bun/Creatinine Ratio 24.5 (12.0-20.0); CO2, Blood 22 mmol/L (21-32); Calcium, Blood 8.9 mg/dL (8.5-10.1); Chloride, Blood 105 mmol/L (98-108); Creatinine, Blood 1.84 mg/dL (0.40-1.00); Glomerular Filtration Rate 28 (60-); Glucose, Blood 78 mg/dL (70-99); Magnesium, Blood 2.1 mg/dL (1.6-2.4); Phosphorus, Blood 3.8 mg/dL (2.5-4.9); Potassium, Blood 4.6 mmol/L (3.5-5.5); Sodium, Blood 135 mmol/L (136-145)
[2025-01-30 08:25] VITALS: BP 109/85
[2025-01-30] MEDS ORDERED: Furosemide 10 MG / ML 2ML Vial IV SCH (09:00)
[2025-01-30] MEDS ORDERED: Metoprolol Succinate 25 MG TABCR PO SCH (09:00)
[2025-01-30 13:11] VITALS: BP 104/75
[2025-01-30] MEDS ORDERED: Metoprolol Tartrate 1 MG/ML 5 ML VIAL IV PRN (14:50)
--- NOTE | 2025-01-30 16:38 | NUR ---
SHIFT SUMMARY PT AOX4, COOPERATIVE, ABLE TO MAKE NEED SKONWN. PT HAS SPENT MAJORITY OF DAY IN BED, WITH EXCEPTION OF AMBULATING TO BATHROOM TO VOID. ON O2 AT 2L, RUNNING PULSE OX 97% CONSISTANTLY. IND IN ROOM. TOLERATING PO AND IV MEDICATION. DIURESING AT THIS POINT. POSSIBILITY OF DC TOMORROW. BED IN LOWEST POSITIOON, CALL LIGHT WITHIN REACH.
[2025-01-30 17:57] VITALS: BP 117/85
[2025-01-30 20:45] VITALS: BP 115/87
[2025-01-30 21:42] LABS: Albumin, Blood 3.3 g/dL (3.4-5.0); Albumin/Globulin Ratio 0.9 (0.8-1.8); Bun/Creatinine Ratio 24.9 (12.0-20.0); Calcium, Blood 8.8 mg/dL (8.5-10.1); Creatinine, Blood 1.73 mg/dL (0.40-1.00); Globulin, Blood 3.5 g/dL (2.2-4.0); Magnesium, Blood 2.2 mg/dL (1.6-2.4); Potassium, Blood 4.6 mmol/L (3.5-5.5); Total Protein, Blood 6.8 g/dL (6.4-8.2)
--- NOTE | 2025-01-30 21:55 | NUR ---
REPORT GIVEN TO MARLYS LAWRENCE. PATIENT SENT TO [facility] WITH PERSONAL BELONGINGS. ON NC.
[2025-01-31] VITALS: BP 94/63
[2025-01-31 04:00] VITALS: BP 98/67
[2025-01-31 04:53] LABS: BASOPHILS ABSOLUTE AUTO 0.03 K/mm3 (0.00-0.23); BASOPHILS PERCENT AUTO 1 % (0-2); EOSINOPHILS ABSOLUTE AUTO 0.07 K/mm3 (0.00-0.68); EOSINOPHILS PERCENT AUTO 1 % (0-6); Hemoglobin 13.3 g/dL (11.5-16.0); IMMATURE GRAN ABSOLUTE AUTO 0.04 K/mm3 (0.00-0.10); IMMATURE GRAN PERCENT AUTO 1 % (0-1); LYMPHOCYTES ABSOLUTE AUTO 1.87 K/mm3 (0.84-5.20); LYMPHOCYTES PERCENT AUTO 32 % (21-46); MONOCYTES ABSOLUTE AUTO 0.44 K/mm3 (0.16-1.47); MONOCYTES PERCENT AUTO 8 % (4-13); Mean Corpuscular HGB 30.6 pg (26.0-34.0); Mean Corpuscular HGB Conc 31.7 g/dL (31.5-36.5); Mean Corpuscular Volume 97 fL (80-100); Mean Platelet Volume 10.4 fL (9.1-12.4); NEUTROPHILS ABSOLUTE AUTO 3.39 K/mm3 (1.96-9.15); NEUTROPHILS PERCENT AUTO 58 % (41-73); Platelet Count 67 K/mm3 (150-400); RDW Coefficient Variation 17.8 % (11.7-14.2); RDW Standard Deviation 60.8 fL (35.1-46.3); Red Blood Cell Count 4.35 M/mm3 (3.80-5.20); White Blood Cell Count 5.84 K/mm3 (4.00-11.30)
[2025-01-31 05:21] LABS: Bun/Creatinine Ratio 26.6 (12.0-20.0); Calcium, Blood 8.9 mg/dL (8.5-10.1); Creatinine, Blood 1.77 mg/dL (0.40-1.00); Potassium, Blood 4.4 mmol/L (3.5-5.5)
--- NOTE | 2025-01-31 06:30 | NUR ---
SHIFT SUMMARY PT HAS TOLERATED NIGHT WELL SINCE TRANSFER FROM [facility]. PT STATES THAT SHE NEVER FELT ANY CHEST PAIN, PALPITATIONS, OR DIZZINESS DURING PERIOD OF TIME RAPID RESPONSE WAS CALLED FOR HER, AND HAS CONTINUED TO BE ASYMPTOMATIC THROUGHOUT NIGHT. PT IS CURRENTLY RESTING IN ROOM WITH NO COMPLAINTS AT THIS TIME. WILL CONTINUE TO MONITOR UNTIL REPORT PASSED TO DAY SHIFT TEAM.
[2025-01-31 07:35] VITALS: BP 100/82
[2025-01-31] MEDS ORDERED: Empagliflozin 10 MG TAB PO SCH (09:00)
[2025-01-31 13:05] VITALS: BP 103/79
--- NOTE | 2025-01-31 15:54 | NUR ---
SHIFT SUMMARY: PT HAS BEEN A&Ox4, ABLE TO MAKE NEEDS KNOWN, AND HAS BEEN COOPERATIVE W/CARE. PT HAS DENIED SOB THIS SHIFT, O2 SATS >93% ON 2 L/MIN VIA NC. PT DENIES CHEST PAIN BUT DOES ENDORSE FEELING LIKE HER HEART IS "POUNDING" AT TIMES, NO ADVERSE EVENTS THIS SHIFT. CHEST X-RAY COMPLETED THIS SHIFT. CARDIOLOGY CONSULT COMPLETED AT BEDSIDE, PACEMAKER INTERROGATED, PLAN FOR CARDIOVERSION AND STRESS TEST TOMORROW. FR OF 1800ML ENDORSED THIS SHIFT, PT TOLERATING WELL. SBA TO BATHROOM. PT RESTING IN BED W/CALL LIGHT IN REACH.
[2025-01-31 17:28] VITALS: BP 105/87
[2025-01-31 21:33] VITALS: BP 94/80
[2025-02-01] VITALS (16 sets, daily range): BP systolic 82–141; BP diastolic 61–87
[2025-02-01 03:47] LABS: BASOPHILS ABSOLUTE AUTO 0.04 K/mm3 (0.00-0.23); BASOPHILS PERCENT AUTO 1 % (0-2); EOSINOPHILS ABSOLUTE AUTO 0.11 K/mm3 (0.00-0.68); EOSINOPHILS PERCENT AUTO 2 % (0-6); Hematocrit 41.4 % (33.0-51.0); Hemoglobin 13.1 g/dL (11.5-16.0); IMMATURE GRAN ABSOLUTE AUTO 0.03 K/mm3 (0.00-0.10); IMMATURE GRAN PERCENT AUTO 1 % (0-1); LYMPHOCYTES ABSOLUTE AUTO 1.85 K/mm3 (0.84-5.20); LYMPHOCYTES PERCENT AUTO 32 % (21-46); MONOCYTES PERCENT AUTO 7 % (4-13); Mean Corpuscular HGB 30.5 pg (26.0-34.0); Mean Corpuscular HGB Conc 31.6 g/dL (31.5-36.5); Mean Corpuscular Volume 97 fL (80-100); Mean Platelet Volume 10.7 fL (9.1-12.4); NEUTROPHILS PERCENT AUTO 58 % (41-73); NRBC ABSOLUTE 0.03 K/mm3 (0.00-0.02); NRBC Auto 0.5 /100 WBC (0.0-0.2); Platelet Count 69 K/mm3 (150-400); RDW Standard Deviation 60.3 fL (35.1-46.3); Red Blood Cell Count 4.29 M/mm3 (3.80-5.20); White Blood Cell Count 5.83 K/mm3 (4.00-11.30)
[2025-02-01 04:05] LABS: Albumin, Blood 3.1 g/dL (3.4-5.0); Albumin/Globulin Ratio 0.9 (0.8-1.8); Bilirubin, Total 0.9 mg/dL (0.1-1.0); Bun/Creatinine Ratio 25.7 (12.0-20.0); Creatinine, Blood 1.67 mg/dL (0.40-1.00); Globulin, Blood 3.6 g/dL (2.2-4.0); Potassium, Blood 4.4 mmol/L (3.5-5.5); Total Protein, Blood 6.7 g/dL (6.4-8.2)
--- NOTE | 2025-02-01 07:58 | NUR ---
SHIFT SUMMARY: PT IS A&OX4, PLEASANT AND COOPERATIVE WITH CARE. PT IS VERY [place], DOES WEAR BILATERAL HEARING AIDES WHEN AWAKE. BP SOFT, SBP<100, HR TACHY 130'S, ON 2L NC SATTING >94%. JUNCTIONAL TACHYCARDIA 130'S. PT IS ASYMPTOMATIC. DENIES PAIN. TOLERATING A HEART HEALTHY DIET, COMPLIANT WITH 1800ML FLUID RESTRICTION. PT UP TO BR INDEPENDENTLY. PT VOIDING LARGE AMOUNTS OF PALE YELLOW URINE. X3 MEDIUM, FORMED, BROWN BM'S THIS SHIFT. BED IN LOWEST POSITION, CALL LIGHT WITHIN REACH. CALLS APPROPRIATELY AND IS ABLE TO ADVOCATE NEEDS EFFECTIVELY.
[2025-02-01] MEDS ORDERED: Lactated Ringer's 1,000 ML IV ONE (12:21)
--- NOTE | 2025-02-01 12:27 | NUR ---
UPDATE: PT TO SANITARY PLUMBER FOR PROCEDURE
--- NOTE | 2025-02-01 13:12 | NUR ---
UPDATE: PT RETURNS TO ROOM FROM PEER COUNSELOR, CARDIOVERSION WAS SUCCESSFUL, PT CURRENTLY IN SR W/RATE 60s, RECOVERY VS IN PLACE.
[2025-02-01] MEDS ORDERED: Regadenoson 0.4 MG/5 ML SYRINGE ONE (13:59)
[2025-02-01] MEDS ORDERED: Caffeine Citrated 60 MG/3 ML Vial ONE (13:59)
--- NOTE | 2025-02-01 19:45 | NUR ---
SHIFT SUMMARY: PT HAS BEEN A&Ox4, INUPIAT W/HEARING AIDES, IS COOPERATIVE W/CARE, ABLE TO MAKE NEEDS KNOWN. PT DENIES SOB, O2 SATS >93% ON 2L NC. PT ENDORSES FLUTTERING FEELING IN CHEST THIS AM, BUT AFTER CARDIOVERSION SHE DENIES CHEST DISCOMFORT. PT HAS BEEN IN SR SINCE CARDIOVERSION, RATE 60s. PLAN FOR ONE DAY STRESS TEST TO BEGIN AT APPROX 0800 TOMORROW AM, NO CAFFEINE UNTIL AFTER THE TEST, AND NPO AFTER MIDNIGHT. PT CONTINUES TO BE SBA TO/FROM BATHROOM. AT THIS TIME, PT IS RESTING IN BED W/CALL LIGHT IN REACH. REPORT GIVEN TO MELINDA ALEXIS TO ASSUME CARE OF PT.
[2025-02-02] VITALS (7 sets, daily range): BP systolic 96–119; BP diastolic 65–97
[2025-02-02 03:50] LABS: BASOPHILS ABSOLUTE AUTO 0.05 K/mm3 (0.00-0.23); BASOPHILS PERCENT AUTO 1 % (0-2); EOSINOPHILS PERCENT AUTO 2 % (0-6); Hematocrit 41.7 % (33.0-51.0); Hemoglobin 12.9 g/dL (11.5-16.0); IMMATURE GRAN ABSOLUTE AUTO 0.03 K/mm3 (0.00-0.10); IMMATURE GRAN PERCENT AUTO 1 % (0-1); LYMPHOCYTES ABSOLUTE AUTO 1.75 K/mm3 (0.84-5.20); LYMPHOCYTES PERCENT AUTO 29 % (21-46); MONOCYTES ABSOLUTE AUTO 0.41 K/mm3 (0.16-1.47); MONOCYTES PERCENT AUTO 7 % (4-13); Mean Corpuscular HGB 30.4 pg (26.0-34.0); Mean Corpuscular HGB Conc 30.9 g/dL (31.5-36.5); Mean Corpuscular Volume 98 fL (80-100); Mean Platelet Volume 10.5 fL (9.1-12.4); NEUTROPHILS ABSOLUTE AUTO 3.61 K/mm3 (1.96-9.15); NEUTROPHILS PERCENT AUTO 61 % (41-73); NRBC ABSOLUTE 0.03 K/mm3 (0.00-0.02); NRBC Auto 0.5 /100 WBC (0.0-0.2); Platelet Count 64 K/mm3 (150-400); RDW Coefficient Variation 18.5 % (11.7-14.2); RDW Standard Deviation 63.1 fL (35.1-46.3); Red Blood Cell Count 4.25 M/mm3 (3.80-5.20); White Blood Cell Count 5.95 K/mm3 (4.00-11.30)
[2025-02-02 04:24] LABS: Albumin, Blood 3.2 g/dL (3.4-5.0); Albumin/Globulin Ratio 0.9 (0.8-1.8); Bun/Creatinine Ratio 24.8 (12.0-20.0); Calcium, Blood 8.7 mg/dL (8.5-10.1); Creatinine, Blood 1.57 mg/dL (0.40-1.00); Globulin, Blood 3.4 g/dL (2.2-4.0); Total Protein, Blood 6.6 g/dL (6.4-8.2)
--- NOTE | 2025-02-02 07:28 | NUR ---
SHIFT SUMMARY: PT IS A&OX4, PLEASANT AND COOPERATIVE WITH CARE. PT IS VERY [place], DOES WEAR BILATERAL HEARING AIDES WHEN AWAKE. VSS, HR 60'S, ON 2L NC SATTING >94%. PT REMAINS IN SR IN THE 60'S. DENIES PAIN. TOLERATING A HEART HEALTHY DIET, COMPLIANT WITH 1800ML FLUID RESTRICTION. PT ONLY HAVING WATER AFTER MN FOR STRESS TEST TODAY. PT UP TO BR INDEPENDENTLY. PT VOIDING LARGE AMOUNTS OF PALE YELLOW URINE. NO BM THIS SHIFT. BED IN LOWEST POSITION, CALL LIGHT WITHIN REACH. CALLS APPROPRIATELY AND IS ABLE TO ADVOCATE NEEDS EFFECTIVELY.
[2025-02-02] MEDS ORDERED: Furosemide 10 MG / ML 2ML Vial IV SCH (09:00)
[2025-02-02] MEDS ORDERED: Regadenoson 0.4 MG/5 ML SYRINGE ONE (12:34)
[2025-02-02] MEDS ORDERED: Aminophylline 250MG / 10ML 10 ML Vial ONE (12:36)
[2025-02-02] MEDS ORDERED: Furosemide 20 MG Tab PO SCH (17:00)
--- NOTE | 2025-02-02 19:17 | NUR ---
SHIFT SUMMARY PATIENT AOX4 ABLE TO MAKE NEEDS KNOWN DENIES CHEST PAIN OR SOB. TOLERATING HER FOOD. SHE IS ABLE TO WALK TO THE BATHROOM INDEPENDENTLY. SHE WENT FOR STRESS TEST TODAY HOPSITALIST AND CARDIOLOGOST INFORMED RESULTS AVAILABLE.
[2025-02-03 00:06] VITALS: BP 111/73
--- NOTE | 2025-02-03 00:38 | NUR ---
ASSUMPTION OF CARE PT A&O X4, CALM, COOPERATIVE TO CARE. HR IN THE 60'S-70'S, SINUS RHYTHM. SHE DENIES ANY CP/PRESSURE, NUMB/TINGLING, SBP IN THE 100'S, MAP >65. PT ON RA AT START OF SHIFT, PER PT SHE USES 2L AT BL NEEDED, MAINLY FOR SLEEP. PT ON 2L AT THIS TIME, 02 >92%. PT HADS STRESS TEST ON 02/02, PROVIDER CALLED WITH RESULTS AND CARDIOLOY NOTIFIED. PT TO F/U OPT, UPDATED PT ON PLAN, PT AGREED. PT DENIES ANY QUESTIONS/CONCERNS. PT RESTING IN BED AT THIS TIME. CALL LIGHT IN REACH. WILL MONITOR PT.
[2025-02-03 03:40] VITALS: BP 114/76
[2025-02-03 04:08] LABS: BASOPHILS ABSOLUTE AUTO 0.04 K/mm3 (0.00-0.23); BASOPHILS PERCENT AUTO 1 % (0-2); EOSINOPHILS ABSOLUTE AUTO 0.09 K/mm3 (0.00-0.68); EOSINOPHILS PERCENT AUTO 2 % (0-6); Hematocrit 41.4 % (33.0-51.0); Hemoglobin 12.6 g/dL (11.5-16.0); IMMATURE GRAN ABSOLUTE AUTO 0.02 K/mm3 (0.00-0.10); IMMATURE GRAN PERCENT AUTO 0 % (0-1); LYMPHOCYTES PERCENT AUTO 24 % (21-46); MONOCYTES ABSOLUTE AUTO 0.45 K/mm3 (0.16-1.47); MONOCYTES PERCENT AUTO 8 % (4-13); Mean Corpuscular HGB 30.6 pg (26.0-34.0); Mean Corpuscular HGB Conc 30.4 g/dL (31.5-36.5); Mean Corpuscular Volume 101 fL (80-100); Mean Platelet Volume 10.9 fL (9.1-12.4); NEUTROPHILS PERCENT AUTO 66 % (41-73); Platelet Count 52 K/mm3 (150-400); RDW Coefficient Variation 18.6 % (11.7-14.2); RDW Standard Deviation 66.1 fL (35.1-46.3); Red Blood Cell Count 4.12 M/mm3 (3.80-5.20)
[2025-02-03 05:13] LABS: Albumin, Blood 3.1 g/dL (3.4-5.0); Bilirubin, Total 1.1 mg/dL (0.1-1.0); Bun/Creatinine Ratio 20.6 (12.0-20.0); Calcium, Blood 8.5 mg/dL (8.5-10.1); Creatinine, Blood 1.6 mg/dL (0.40-1.00); Globulin, Blood 3.2 g/dL (2.2-4.0); Potassium, Blood 3.8 mmol/L (3.5-5.5); Total Protein, Blood 6.3 g/dL (6.4-8.2)
--- NOTE | 2025-02-03 06:01 | NUR ---
SHIFT SUMMARY PT A&O X4, CALM, COOPERATIVE TO CARE. HR IN THE 60'S-70'S, SR. SHE DENIES ANY CP/PRESSURE, NUMB/TINGLING, SBP STABLE. O2 >92% ON RA-2L, PT ON 2L FOR SLEEP AND NEEDED DURING THE DAY. SHE DENIES ANY SOB. N/O ACUTE CHANGES T/O NIGHT. PT RESTED IN BED MOST OF THE NIGHT. PT RESTING IN BED AT THIS TIME. CALL LIGHT IN REACH. WILL MONITOR PT AND REPORT TO ONCOMIGN RN.
[2025-02-03 08:28] VITALS: BP 103/66
[2025-02-03] MEDS ORDERED: Aspirin 81 MG Chew PO SCH (09:00)
[2025-02-03] MEDS ORDERED: Atorvastatin 40 MG Tab PO SCH (09:00)
[2025-02-03] MEDS ORDERED: METO25ER PO (12:01)
[2025-02-03] MEDS ORDERED: ASPI81CH PO (12:02)
[2025-02-03] MEDS ORDERED: ATOR40TA PO (12:02)
[2025-02-03] MEDS ORDERED: MIDO5 PO (12:03)
[2025-02-03] MEDS ORDERED: JARDIANCE10 MG PO (12:03)
[2025-02-03 13:50] VITALS: BP 100/69
--- NOTE | 2025-02-03 14:42 | NUR ---
SHIFT SUMMARY PATIENT AOX4 ABLE TO MAKE NEEDS KNOWN. SHE DENIES CP AND SOB. SHE IS TOLEATING HER MEALS AND ABLE TO WALK INDEPENDENTLY TO THE RESTROOM. HER BLOOD PRESSURE IS SOFT BUT VITALS ARE STABLE. SHE SPOKE WITH THE HOSPITALIST AND BARREL COATER AT BEDSIDE. HER DISCHARGE INSTRUCTIONS WERE EXPLAINED AND SHE UNDERSTANDS AND HAS NO FURTHER QUESTIONS.
[2025-02-04] MEDS ORDERED: Losartan Potassium 25 MG Tab PO SCH (09:00)
== END 2025-02-03 14:30 | disposition home or self-care (01) | DRG 291 ==
LOC: ER 17:20 → PCU 20:15 → MEDS 20:15 → PCU 01-30 20:30
PROVIDERS: Family Medicine; Registered Nurse; Student in an Organized Health Care Education/Training Program; ADMIT Student in an Organized Health Care Education/Training Program
PROC: 5A2204Z Restoration of Cardiac Rhythm, Single (ICD-10-PCS; principal; 2025-02-01)
DX: I50.43 Acute on chronic combined systolic (congestive) and diastolic (congestive) heart failure (principal); J96.21 Acute and chronic respiratory failure with hypoxia; I48.92 Unspecified atrial flutter; I42.8 Other cardiomyopathies; N17.9 Acute kidney failure, unspecified; I47.20 Ventricular tachycardia, unspecified; J44.1 Chronic obstructive pulmonary disease with (acute) exacerbation; I25.10 Atherosclerotic heart disease of native coronary artery without angina pectoris; I49.5 Sick sinus syndrome; I25.5 Ischemic cardiomyopathy; K21.9 Gastro-esophageal reflux disease without esophagitis; G56.80 Other specified mononeuropathies of unspecified upper limb; I48.0 Paroxysmal atrial fibrillation; N18.32 Chronic kidney disease, stage 3b; I95.89 Other hypotension; R09.02 Hypoxemia; Z88.6 Allergy status to analgesic agent; Z88.8 Allergy status to other drugs, medicaments and biological substances; Z95.2 Presence of prosthetic heart valve; Z95.0 Presence of cardiac pacemaker; Z79.01 Long term (current) use of anticoagulants; Z87.891 Personal history of nicotine dependence
CPT/HCPCS: 36415; 71046; 78452; 80048; 80053; 80069; 82803; 83735; 83880; 84145; 84484; 85025; 92960; 93005; 93010; 93017; 93279; 93306; 94640; 94664; 94761; 94762; 97110; 97161; 99285-25; A9270; A9500; J0280; J0706; J1938; J2405; J2704; J2785; J7120

== ENCOUNTER 2025-02-08 07:32 | Inpatient (IN) | payer OTHER ==
[2025-02-08] VITALS (7 sets, daily range): BP systolic 94–113; BP diastolic 54–87
[~2025-02-08] VITALS: Ht 160 cm; Wt 68.2 kg
[~2025-02-08 07:32] MED LIST changes: +ASPI81CH PO; +ATOR40TA PO; +DILT60ER PO; +JARDIANCE10 MG PO
[2025-02-08] MEDS ORDERED: Diltiazem HCl 5 MG / ML 5ML Vial IV ONE (07:50)
[2025-02-08] MEDS ORDERED: Magnesium Sulf 2 GM/Water 50ML 50 ML IV ONE (07:55)
[2025-02-08 08:02] LABS: BASOPHILS ABSOLUTE AUTO 0.05 K/mm3 (0.00-0.23); BASOPHILS PERCENT AUTO 1 % (0-2); EOSINOPHILS ABSOLUTE AUTO 0.04 K/mm3 (0.00-0.68); EOSINOPHILS PERCENT AUTO 1 % (0-6); Hematocrit 42.5 % (33.0-51.0); Hemoglobin 12.8 g/dL (11.5-16.0); IMMATURE GRAN ABSOLUTE AUTO 0.01 K/mm3 (0.00-0.10); IMMATURE GRAN PERCENT AUTO 0 % (0-1); LYMPHOCYTES ABSOLUTE AUTO 1.41 K/mm3 (0.84-5.20); LYMPHOCYTES PERCENT AUTO 26 % (21-46); MONOCYTES ABSOLUTE AUTO 0.23 K/mm3 (0.16-1.47); MONOCYTES PERCENT AUTO 4 % (4-13); Mean Corpuscular HGB Conc 30.1 g/dL (31.5-36.5); Mean Corpuscular Volume 102 fL (80-100); NEUTROPHILS ABSOLUTE AUTO 3.60 K/mm3 (1.96-9.15); NEUTROPHILS PERCENT AUTO 68 % (41-73); NRBC ABSOLUTE 0.00 K/mm3 (0.00-0.02); NRBC Auto 0.0 /100 WBC (0.0-0.2); Platelet Count 56 K/mm3 (150-400); RDW Coefficient Variation 18.1 % (11.7-14.2); RDW Standard Deviation 67.0 fL (35.1-46.3)
[2025-02-08 08:17] LABS: Alanine Aminotransfer (ALT/SGP 30.0 U/L (12-78); Albumin, Blood 3.4 g/dL (3.4-5.0); Albumin/Globulin Ratio 0.9 (0.8-1.8); Anion Gap 11.0 mmol/L (3-11); Aspartate Aminotrans (AST/SGOT 22.0 U/L (12-37); Bilirubin, Total 1.4 mg/dL (0.1-1.0); Blood Urea Nitrogen 28.0 mg/dL (8-24); CO2, Blood 25.0 mmol/L (21-32); Calcium, Blood 8.9 mg/dL (8.5-10.1); Chloride, Blood 106.0 mmol/L (98-108); Creatinine, Blood 1.51 mg/dL (0.40-1.00); Globulin, Blood 3.7 g/dL (2.2-4.0); Glucose, Blood 107.0 mg/dL (70-99); Magnesium, Blood 2.0 mg/dL (1.6-2.4); Potassium, Blood 4.2 mmol/L (3.5-5.5); Sodium, Blood 138.0 mmol/L (136-145); Total Protein, Blood 7.1 g/dL (6.4-8.2)
[2025-02-08] MEDS ORDERED: Furosemide 10 MG / ML 2ML Vial IV ONE (08:50)
[2025-02-08] MEDS ORDERED: Metoprolol Tartrate 1 MG/ML 5 ML VIAL IV ONE (15:00)
[2025-02-08] MEDS ORDERED: Digoxin 0.25 MG in NS 4 ML IV SCH (15:30)
--- NOTE | 2025-02-08 17:26 | NUR ---
PATIENT ADMIT TO PCU AT 1412. ALERT AND ORIENTED. ABLE TO STAND AND TRANSFER. STANDING WEIGHT COMPLETED. HARD OF HEARING WITH BILATERAL HEARING AIDS IN PLACE. PATIENT STATES SHE OCCASIONALLY USES A CANE AT BASELINE. ONE PERSON ASSIST ON TRANSFER. DENIES PAIN. TELE SHOWING AFLUTTER WITH HR 130'S. SBP 90-110'S. DENIES CHEST PAIN BUT STATES SHE CAN FEEL SOME PRESSURE AND HER HEART BEATING FAST. NO EDEMA NOTED. CARDIZEM GTT INFUSING UPON ED TRANSFER TO PCU. DR. DURAN CALLED BY THIS RN UPON ADMIT TO PCU AND ORDERS TO TITRATE CARDIZEM OFF AND START IV DIG. SEE ORDERS PLACED. CARDIZEM GTT OFF. DR. CHÁVEZ TO BEDSIDE. PLAN FOR AMIO GTT, NPO AT MIDNIGHT FOR POSSIBLE CARDIOVERSION IN AM IF PATIENT DOES NOT TRANSFER TO [facility]. COBRA TRANSFER PENDING BED AVAILIBLITY. AMIO GTT INFUSING AT THIS TIME. ON 3L NASAL CANNULA SATING ABOVE 95%. SOB WITH EXCERTION. RR 16-22. LUNG SOUNDS COARSE. OCCASIONAL MOIST/LOOSE SOUNDING COUGH. IV LASIX GIVEN PER EMAR. UP TO BSC TO VOID. STRICT I/O. DENIES ABDOMINAL PAIN/NAUSEA. TOLERATING PO DIET AT THIS TIME. NPO AT MIDNIGHT. BOWEL TONES PRESENT IN ALL FOUR QUADRANTS. SKIN DRY AND INTACT WITH SCATTERED BRUISING TO BILATERAL ARMS FROM PRIOR IV'S/LAB DRAWS AT PREVIOUS ADMISSION. FAMILY AT BEDSIDE AND UPDATED ON PLAN OF CARE. CALL LIGHT IN REACH. SITTING ON EDGE OF BED AT THIS TIME EATING DINNER, DENIES NEEDS.
--- NOTE | 2025-02-08 17:58 | NUR ---
DR. BREWSTER PLACED CALL TO THIS GLASS MELT OPERATOR AND ASKED TO DISCONTINUE IV LASIX, ORDER READ BACK TO DR. BREWSTER TO CONFIRM. IV LASIX DISCONTINUED.
[2025-02-09 03:54] VITALS: BP 96/83
[2025-02-09 04:00] LABS: BASOPHILS ABSOLUTE AUTO 0.05 K/mm3 (0.00-0.23); BASOPHILS PERCENT AUTO 1 % (0-2); EOSINOPHILS ABSOLUTE AUTO 0.06 K/mm3 (0.00-0.68); EOSINOPHILS PERCENT AUTO 1 % (0-6); Hematocrit 39.6 % (33.0-51.0); Hemoglobin 12.2 g/dL (11.5-16.0); IMMATURE GRAN ABSOLUTE AUTO 0.02 K/mm3 (0.00-0.10); IMMATURE GRAN PERCENT AUTO 0 % (0-1); LYMPHOCYTES ABSOLUTE AUTO 1.10 K/mm3 (0.84-5.20); LYMPHOCYTES PERCENT AUTO 17 % (21-46); MONOCYTES ABSOLUTE AUTO 0.27 K/mm3 (0.16-1.47); MONOCYTES PERCENT AUTO 4 % (4-13); Mean Corpuscular HGB Conc 30.8 g/dL (31.5-36.5); Mean Corpuscular Volume 99 fL (80-100); NEUTROPHILS ABSOLUTE AUTO 4.96 K/mm3 (1.96-9.15); NEUTROPHILS PERCENT AUTO 77 % (41-73); NRBC ABSOLUTE 0.00 K/mm3 (0.00-0.02); NRBC Auto 0.0 /100 WBC (0.0-0.2); Platelet Count 58 K/mm3 (150-400); RDW Coefficient Variation 17.6 % (11.7-14.2); RDW Standard Deviation 63.7 fL (35.1-46.3)
[2025-02-09 04:18] LABS: Alanine Aminotransfer (ALT/SGP 26.0 U/L (12-78); Albumin, Blood 3.3 g/dL (3.4-5.0); Albumin/Globulin Ratio 1.0 (0.8-1.8); Anion Gap 9.0 mmol/L (3-11); Aspartate Aminotrans (AST/SGOT 17.0 U/L (12-37); Bilirubin, Total 1.5 mg/dL (0.1-1.0); Blood Urea Nitrogen 30.0 mg/dL (8-24); CO2, Blood 26.0 mmol/L (21-32); Calcium, Blood 8.7 mg/dL (8.5-10.1); Chloride, Blood 105.0 mmol/L (98-108); Creatinine, Blood 1.45 mg/dL (0.40-1.00); Globulin, Blood 3.4 g/dL (2.2-4.0); Glucose, Blood 107.0 mg/dL (70-99); Potassium, Blood 4.0 mmol/L (3.5-5.5); Sodium, Blood 136.0 mmol/L (136-145); Total Protein, Blood 6.7 g/dL (6.4-8.2)
--- NOTE | 2025-02-09 04:26 | NUR ---
PATIENT IS ALERT AND ORIENTED X3-4, COOPERATIVE WITH CARE, CAN BE IMPULSIVE AT TIMES-BED ALARM ON FOR PATIENT SAFETY. PATIENT HAS PG TO LYNETTE WITH AMIODARONE INFUSING PER ORDERS-PATIENT WOULD BENEFIT FROM A SECONDARY POWERGLIDE-ATTEMPTED PERIPHERAL IV W/O SUCCESS-PATIENT DID NOT TOLERATE WELL. PATIENT IS CURRENTLY ACCEPTED AT [facility] IN [place] FOR AN ABLATION BUT AWAITING A BED. PATIENT IS ON CONTINUOUS CARDIAC MONITORING VIA TELEMETRY RUNNING AFLUTTER IN THE 1-TEENS TO 120'S-PATIENT IS CURRENTLY ON AMIODARONE DRIP AND HAS BEEN DIG LOADED THIS SHIFT X2 DOSES WITH HEART RATE NOW AT 117 VIA TELEMETRY MONITORING. PATIENT IS UP WITH 1P ASSIST TO THE BSC-NO REPORTS OF ISSUES WITH URINATION. BED IS LOCKED IN THE LOWEST POSITION WITH CALL LIGHT IN REACH. CARE IS ONGOING.
[2025-02-09] MEDS ORDERED: Misc. Capsule PO SCH (06:00)
--- NOTE | 2025-02-09 07:22 | NUR ---
ASSUMPTION NOTE: THIS RN TO ASSUME CARE OF PT. PATIENT IS SITTING AT THE EDGE OF BED,COMPLAINED ABOUT FEELING SHORT OF BREATH. THIS RN BUMPED OXYGEN UP PATEINT SATTING AT 94% ON 8LITERS VIA NASAL CANAULA AND STATING SHE FEELS A LITTLE BETTER. BLOOD PRESSRE TAKEN & PT STABLE. HAS CALL LIGHT WITHIN REACH, BED IN LOWEST POSIITON & STATING NOTHING ELSE IS NEEDED AT THIS TIME.
[2025-02-09 07:24] VITALS: BP 122/98
--- NOTE | 2025-02-09 07:26 | NUR ---
DRIP RUNNING: PATIENT HAS AMIO RUNNING INTO UPPER RIGHT ARM POWERGLIDE AT HALF RATE.
--- NOTE | 2025-02-09 08:17 | NUR ---
MD ROUNDED: MD AND RESIDENT ROUNDED. SPOKE WITH PT REGARDING THE TRANSFER AND WHAT THE CARDIOLGOIST PLAN IS THAT SHE KNOWS OF. PT IS WANTING TO GET PROCEDURE DONE AND MAKE TO HER SISTERS REPUBLICAN THIS WEEKEND. MD GAVE VERBAL ORDER TO START PATIENT ON LASIX BID, ORDER WAS PLACED.
[2025-02-09] MEDS ORDERED: Enoxaparin 30 MG/0.3 ML SYR SC SCH (09:00)
--- NOTE | 2025-02-09 09:53 | NUR ---
FAMILY UPDATE: FAMILY CAME TO BEDSIDE AND WAS UPDATED REGARDING AWAITING A BED. PT WAS ANXIOUS AND GETTING AGITATED REGARDING NEEDING TO WAIT AND NOT HAVING ANSWERS. THIS RN TO CALL MALIKA FOR AN UPDATE.
[2025-02-09] MEDS ORDERED: Amiodarone HCl 50 MG / ML 3 ML Amp IV ONE (10:25)
--- NOTE | 2025-02-09 10:33 | NUR ---
MD CONTACTED: AUTOMOBILE WASHER [employer]AM WAS CONTACTED PT REQUETSED TO HAVE A CARDIOVERSION INSTEAD OF WAITING FOR A POSSIBLE BED AT [facility]. AUTOMOBILE WASHER STEAM TO COME TO BEDSIDE,TO KEEP PATIENT NPO AT THIS TIME. BOLUS WAS ORDERED WAITING FOR DELIVERY FROM PHARMACY
--- NOTE | 2025-02-09 10:38 | NUR ---
RESIDENT CONTACTED: THIS RN CONTACTED RESIDENT PATIENT CONTINUES TO GET AGITATED & THIS RN ASKED FOR SOMETHING FOR HER ANXIETY & AGITATION. RESIDENT TO PUT ORDERS IN.
[2025-02-09 11:29] VITALS: BP 104/79
[2025-02-09] MEDS ORDERED: LORazepam 2 MG / ML 10ML Vial IV ONE (13:00)
--- NOTE | 2025-02-09 13:45 | NUR ---
MD VALDES: MEDICAL AFFAIRS LEADER ROUNDED ON PT AND WENT OVER THE PLAN TO WHAT IS MOVING FORWARD. WE ARE STILL WAITING ON [facility] REGARDING A BED.PT IS OK TO EAT IT WILL BE TO LATE FOR HER TO GET ANY PROCEDURES IF SHE GOES [place]. IF SHE IS STILL HERE THROUGHOUT THE NIGHT SHE WILL BE MADE NPO AT MIDNIGHT AND A CARDIOVERSION IN THE AM. PT IS AWARE, AWAITING NIECE TO COME BACK TO BEDSIDE TO UPDATE HER.
--- NOTE | 2025-02-09 13:47 | NUR ---
MD CONTACTED: MD RESIDENT CALLED THIS RN NOTIFYING SHE WILL NOT BE ADDING ANY ANTI ANXIETY MED SHE WOULD LIKE TO TRY OTHER ALTERNATIVES DUE TO HAVING LONG HALF LIFES AND SHE IS SET TO HAVE A PROCEDURE AT ANY TIME.
[2025-02-09 16:15] VITALS: BP 104/79
[2025-02-09 16:20] VITALS: BP 104/79
--- NOTE | 2025-02-09 17:01 | NUR ---
SHIFT SUMMARY: PATIENT IS ALERT AND ORIETNED X4 & COOPERATIVE WITH HER CARE, IS ABLE TO MAKEE NEEDS KNWON & USES CALL LIGHT APPRORIATELY. SATTING >92% ON 4 LITERS VIA HEATED HIGH FLOW. ON TELE SHOWING AFIB WITH RATE 100-120 OCCASIONALLY. PT HAS AN AMIO DRIP RUNNING CURRENTLY AT HALF RATE. FAMILY WAS AT BEDSIDE THROUGHOUT SHIFT. PT IS AWAITING TRANSFER SHE HAS A BED AT [facility],SEE PREVIOUS NOTE FOR MORE INFORMATION. PT HAS CALL LIGHT WITHIN REACH, BED IN LOWEST POSITION EATING DINNER & STATING NOTHING ELSE IS NEEDED AT THIS TIME.
[2025-02-09 17:03] VITALS: BP 112/90
--- NOTE | 2025-02-09 17:23 | NUR ---
COBRA TRANSFER: PATIENT JUST LEFT VIA AMBULANCE TRANSFER FOR [facility]. PATIENT TOOK ALL PERSONAL BELONGINGS AND TRANSFERRED TO [facility] BY WALKING.
== END 2025-02-09 17:17 | disposition short-term general hospital (02) | DRG 280 ==
LOC: ER 07:32 → PCU 07:33
PROVIDERS: Student in an Organized Health Care Education/Training Program; ADMIT Hospitalist
DX: I48.92 Unspecified atrial flutter (principal); I50.23 Acute on chronic systolic (congestive) heart failure; I21.A1 Myocardial infarction type 2; J96.21 Acute and chronic respiratory failure with hypoxia; K21.9 Gastro-esophageal reflux disease without esophagitis; N18.30 Chronic kidney disease, stage 3 unspecified; I25.10 Atherosclerotic heart disease of native coronary artery without angina pectoris; I44.7 Left bundle-branch block, unspecified; I48.91 Unspecified atrial fibrillation; G56.80 Other specified mononeuropathies of unspecified upper limb; I49.5 Sick sinus syndrome; N18.32 Chronic kidney disease, stage 3b; I25.2 Old myocardial infarction; Z95.0 Presence of cardiac pacemaker; Z87.891 Personal history of nicotine dependence; Z88.6 Allergy status to analgesic agent; Z88.8 Allergy status to other drugs, medicaments and biological substances; Z79.01 Long term (current) use of anticoagulants; Z79.82 Long term (current) use of aspirin; Z79.899 Other long term (current) drug therapy; Z83.3 Family history of diabetes mellitus; Z82.49 Family history of ischemic heart disease and other diseases of the circulatory system
CPT/HCPCS: 71045; 80053; 83735; 83880; 84484; 85025; 93005; 93010; 96365; 96366; 96367; 96375; 96376; 99285-25; A9270; G0378; J0282; J1160; J1938; J3475; J7060